=== PATIENT | female | born 2000 | race Caucasian/White ===

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

== ENCOUNTER 2019-02-14 17:03 | Emergency (ER) | payer MEDICAID ==
[2019-02-14 17:08] VITALS: BP 129/70
[2019-02-14] MEDS ORDERED: CYCLOBENZAPRINE 10 MG TABLET PO STA (17:22)
[2019-02-14] MEDS ORDERED: MELOXICAM 7.5 MG TABLET PO STA (17:22)
--- NOTE | 2019-02-14 17:25 | ED Physician Documentation ---
History of Present Illness - Stated complaint Stated Complaint: BACK PX/NAUSEA - Chief complaint Chief Complaint: Back Pain - History obtained from History obtained from: Patient, Friend - History of Present Illness Timing: How many weeks ago (1) Pain level max: 6 Pain level now: 5 - Additonal information Additional information: 18-year-old female presents to the emergency department with right shoulder and upper back pain for the past week. 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 Took Motrin this morning without relief. Worse with movement and better with rest. No fall. No trauma. No fevers. No recent illness. Review of Systems Constitutional: denies: Fever, Chills Cardiac: denies: Chest pain / pressure Respiratory: denies: Cough GI: denies: Vomiting Skin: denies: Rash Musculoskeletal: denies: Neck pain Neurologic: denies: Focal weakness, Numbness, Head injury PD PAST MEDICAL HISTORY - Past Medical History Cardiovascular: None Respiratory: Asthma Endocrine/Autoimmune: None Psych: None Musculoskeletal: None - Past Surgical History Past Surgical History: No - Present Medications Home Medications: Ambulatory Orders Medication Instructions Recorded Confirmed Fluticasone [Flonase] 1 spray [place] DAILY 05/26/14 08/20/16 Albuterol 2.5 mg INH Q4H PRN #30 neb 10/28/15 08/20/16 Albuterol Sulfate [Ventolin Hfa] 2 puffs IH Q6H PRN #1 hfa.aer.ad 10/28/15 08/20/16 Cyclobenzaprine [Flexeril] 10 mg PO TID PRN #20 tablet 02/14/19 Meloxicam [Mobic] 15 mg PO DAILY PRN #20 tablet 02/14/19 - Allergies Allergies/Adverse Reactions: Allergies Allergy/AdvReac Type Severity Reaction Status Date / Time No Known Drug Allergies Allergy Verified 02/14/19 17:08 - Social History Does the pt smoke?: No Smoking Status: Never smoker Does the pt drink ETOH?: No Does the pt have substance abuse?: No - Immunizations Immunizations are current?: Yes PD ED PE NORMAL - Vitals Vital signs reviewed: Yes - General General: Alert and oriented X 3, No acute distress - HEENT HEENT: Moist mucous membranes - Neck Neck: Supple, no meningeal sign, No bony TTP - Cardiac Cardiac: RRR, No murmur - Respiratory Respiratory: No respiratory distress, Clear bilaterally - Abdomen Abdomen: Soft, Non tender, Non distended - Back Back: No spinal TTP, Other (Tender palpation over the right rhomboid muscle. Increased pain with movement of the scapula. 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 Will based on pain medication and muscle relaxants for home. We will follow-up with her doctor. Will utilize sling for comfort. Patient counseled regarding signs and symptoms for which I believe and urgent re-evaluation would be necessary. Patient with good understanding of and agreement to plan and is comfortable going home at this time This document was made in part using voice recognition software. While efforts are made to proofread this document, sound alike and grammatical errors may occur. Departure - Departure Disposition: 01 Home, Self Care Clinical Impression: Rhomboid muscle strain Qualifiers: Encounter type: initial encounter Qualified Code(s): S29.012A - Strain of muscle and tendon of back wall of thorax, initial encounter Condition: Good Instructions: ED Strain Muscle Ext Follow-Up: Your,doctor in 1 week [Other] Prescriptions: Cyclobenzaprine [Flexeril] 10 mg PO TID PRN #20 tablet PRN Reason: Spasms Meloxicam [Mobic] 15 mg PO DAILY PRN #20 tablet PRN Reason: pain Comments: Return if you worsen. Wear the sling for comfort but not more than 2 to [address] heavy machinery while taking the Flexeril. Discharge Date/Time: 02/14/19 17:35
== END 2019-02-14 17:35 | disposition home or self-care (01) ==
LOC: ED 17:03
DX: S29.012A Strain of muscle and tendon of back wall of thorax, initial encounter (principal); X58.XXXA Exposure to other specified factors, initial encounter
CPT/HCPCS: 99283; A9270

== ENCOUNTER 2019-02-18 14:05 | Emergency (ER) | payer OTHER, MEDICAID ==
[2019-02-18 14:16] VITALS: BP 119/66
[2019-02-18] MEDS ORDERED: PROPARACAINE 0.5% OPHTH DROPS 15 ML EACHEYE STA (14:46)
--- NOTE | 2019-02-18 15:14 | ED Physician Documentation ---
PD HPI OPHTHO - Stated complaint Stated Complaint: CHEMICAL IN EYES - Chief complaint Chief Complaint: Heent - History obtained from History obtained from: Patient - History of Present Illness Timing - onset: Today Timing - duration: Hours (1) Timing - details: Abrupt onset Pain level max: 3 Pain level now: 0 Location: Right Quality / character: Burning Associated symptoms: Redness, Tearing. No: Discharge, Matting, FB sensation, Photophobia, Decreased vision, Loss of vision Contributing factors: Other (Exposed to cleaning solution today at work. 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 : None HEENT: None Psych: None Musculoskeletal: None Derm: None - Past Surgical History Past Surgical History: No General: Appendectomy - Present Medications Home Medications: Ambulatory Orders Medication Instructions Recorded Confirmed Fluticasone [Flonase] 1 spray [place] DAILY 05/26/14 08/20/16 Albuterol 2.5 mg INH Q4H PRN #30 neb 10/28/15 08/20/16 Albuterol Sulfate [Ventolin Hfa] 2 puffs IH Q6H PRN #1 hfa.aer.ad 10/28/15 08/20/16 Cyclobenzaprine [Flexeril] 10 mg PO TID PRN #20 tablet 02/14/19 Meloxicam [Mobic] 15 mg PO DAILY PRN #20 tablet 02/14/19 - Allergies Allergies/Adverse Reactions: Allergies Allergy/AdvReac Type Severity Reaction Status Date / Time No Known Drug Allergies Allergy Verified 02/18/19 14:15 - Social History Does the pt smoke?: No Smoking Status: Never smoker Does the pt drink ETOH?: No Does the pt have substance abuse?: No - Immunizations Immunizations are current?: Yes - POLST Patient has POLST: No PD ED PE NORMAL - Vitals Vital signs reviewed: Yes - General General: Alert and oriented X 3, No acute distress - HEENT HEENT: Other (Normal examination of bilateral eyes. No fluorescein uptake. Normal pH.) - Neck Neck: Supple, no meningeal sign - Derm Derm: Warm and dry - Neuro Neuro: Alert and oriented X 3 Results - Vitals Vitals: Vital Signs - 24 hr 02/18/19 14:12 Temperature 36.7 C Heart Rate 82 Respiratory 16 Rate Blood Pressure 119/66 O2 Saturation 100 Oxygen O2 Source Room air PD MEDICAL DECISION MAKING - ED course Complexity details: considered differential, d/w patient ED course: Patient with chemical exposure to the right eye. Normal pH. No fluorescein uptake. We will continue supportive care. Patient asymptomatic. Patient counseled regarding signs and symptoms for which I believe and urgent re- evaluation would be necessary. Patient with good understanding of and agreement to plan and is comfortable going home at this time This document was made in part using voice recognition software. While efforts are made to proofread this document, sound alike and grammatical errors may occur. Departure - Departure Disposition: 01 Home, Self Care Clinical Impression: Chemical exposure of eye Condition: Good Instructions: ED Chemical Conjunctivitis Follow-Up: your,doctor in 1 week [Other] Comments: Return if you worsen. This should resolve without any issues.
== END 2019-02-18 15:18 | disposition home or self-care (01) ==
LOC: ED 14:05
DX: Z77.098 Contact with and (suspected) exposure to other hazardous, chiefly nonmedicinal, chemicals (principal); H57.11 Ocular pain, right eye
CPT/HCPCS: 1040M; 99283; J3490

== ENCOUNTER 2019-12-10 11:42 | Emergency (ER) | payer MEDICAID ==
--- NOTE | 2019-12-10 13:00 | ED Physician Documentation ---
PD HPI MHE - Stated complaint Stated Complaint: ANXIETY - Chief complaint Chief Complaint: MHE - History obtained from History obtained from: Patient - History of Present Illness Primary symptom: Suicidal ideation, Anxiety Pain level max: 0 Pain level now: 0 - Additional information Additional information: 19-year-old female presents to the emergency department with increasing anxiety and depression over the past week or so. She states this was not triggered by any specific event. She states that she thinks about suicide but is not actively suicidal. She is on fluoxetine at home. She does not know who prescribes her medications. Has never attempted suicide. Has not been hospitalized for this. Nothing makes it better or worse. She is not , breast-feeding or trying to become . 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 : None HEENT: None Psych: None Musculoskeletal: None Derm: None - Past Surgical History Past Surgical History: No General: Appendectomy - Present Medications Home Medications: Ambulatory Orders Medication Instructions Recorded Confirmed Fluticasone [Flonase] 1 spray [place] DAILY 05/26/14 08/20/16 Albuterol 2.5 mg INH Q4H PRN #30 neb 10/28/15 08/20/16 Albuterol Sulfate [Ventolin Hfa] 2 puffs IH Q6H PRN #1 hfa.aer.ad 10/28/15 08/20/16 Cyclobenzaprine [Flexeril] 10 mg PO TID PRN #20 tablet 02/14/19 Meloxicam [Mobic] 15 mg PO DAILY PRN #20 tablet 02/14/19 Alprazolam [Xanax] 0.5 mg PO BID PRN #5 tablet 12/10/19 - Allergies Allergies/Adverse Reactions: Allergies Allergy/AdvReac Type Severity Reaction Status Date / Time No Known Drug Allergies Allergy Verified 12/10/19 12:28 - Social History Does the pt smoke?: No Smoking Status: Never smoker Does the pt drink ETOH?: No Does the pt have substance abuse?: No - Immunizations Immunizations are current?: Yes - POLST Patient has POLST: No PD ED PE NORMAL - Vitals Vital signs reviewed: Yes - General General: Alert and oriented X 3, No acute distress - HEENT HEENT: PERRL, Moist mucous membranes - Neck Neck: Supple, no meningeal sign - Cardiac Cardiac: RRR - Respiratory Respiratory: No respiratory distress, Clear bilaterally - Abdomen Abdomen: Soft, Non tender, Non distended - Derm Derm: Warm and dry, No rash - Extremities Extremities: No edema - Neuro Neuro: Alert and oriented X 3 - Psych Psych: Normal mood, Normal affect Results - Vitals Vitals: Vital Signs - 24 hr 12/10/19 12/10/19 12:13 14:35 Temperature 37.8 C H 36.8 C Heart Rate 98 84 Respiratory 28 H 15 Rate Blood Pressure 136/88 H 124/81 H O2 Saturation 99 98 Oxygen O2 Source Room air - Labs Labs: Laboratory Tests 12/10/19 12/10/19 12/10/19 12:59 12:59 12:59 WBC 5.7 RBC 4.26 Hgb 11.6 L Hct 36.1 L MCV 84.7 MCH 27.2 MCHC 32.1 RDW 14.4 Plt Count 316 MPV 10.1 Neut # (Auto) 3.2 Lymph # (Auto) 1.8 [place] # (Auto) 0.5 Eos # (Auto) 0.1 Baso # (Auto) 0.0 Absolute Nucleated RBC 0.00 Nucleated RBC % 0.0 Sodium 138 Potassium 3.8 Chloride 104 Carbon Dioxide 24 Anion Gap 10.0 BUN 6 Creatinine 0.7 Estimated GFR (MDRD) 107 Glucose 89 Calcium 9.4 Total Bilirubin 0.4 AST 19 ALT 14 Alkaline Phosphatase 50 Total Protein 7.7 Albumin 3.9 Globulin 3.8 Albumin/Globulin Ratio 1.0 Lipase 31 TSH 1.48 Urine Color Urine Clarity Urine pH Ur Specific [place] Urine Protein Urine Glucose (UA) Urine Ketones Urine Occult Blood Urine Nitrite Urine Bilirubin Urine Urobilinogen Ur Leukocyte Esterase Ur Microscopic Review Urine Culture Comments Urine HCG, Qual Salicylates < 6.0 Urine Opiates Screen Ur Oxycodone Screen Urine Methadone Screen Ur Propoxyphene Screen Acetaminophen < 10 L Ur Barbiturates Screen Ur Tricyclics Screen Ur Phencyclidine Scrn Ur Amphetamine Screen U Methamphetamines Scrn U Benzodiazepines Scrn Urine Cocaine Screen U Cannabinoids Screen Ethyl Alcohol < 5.0 04/21/20 04/21/20 13:23 13:23 WBC RBC Hgb Hct MCV MCH MCHC RDW Plt Count MPV Neut # (Auto) Lymph # (Auto) [place] # (Auto) Eos # (Auto) Baso # (Auto) Absolute Nucleated RBC Nucleated RBC % Sodium Potassium Chloride Carbon Dioxide Anion Gap BUN Creatinine Estimated GFR (MDRD) Glucose Calcium Total Bilirubin AST ALT Alkaline Phosphatase Total Protein Albumin Globulin Albumin/Globulin Ratio Lipase TSH Urine Color YELLOW Urine Clarity CLEAR Urine pH 7.5 Ur Specific [place] 1.015 Urine Protein NEGATIVE Urine Glucose (UA) NEGATIVE Urine Ketones NEGATIVE Urine Occult Blood NEGATIVE Urine Nitrite NEGATIVE Urine Bilirubin NEGATIVE Urine Urobilinogen 0.2 (NORMAL) Ur Leukocyte Esterase NEGATIVE Ur Microscopic Review NOT INDICATED Urine Culture Comments NOT INDICATED Urine HCG, Qual NEGATIVE Salicylates Urine Opiates Screen NEGATIVE Ur Oxycodone Screen NEGATIVE Urine Methadone Screen NEGATIVE Ur Propoxyphene Screen NEGATIVE Acetaminophen Ur Barbiturates Screen NEGATIVE Ur Tricyclics Screen NEGATIVE Ur Phencyclidine Scrn NEGATIVE Ur Amphetamine Screen NEGATIVE U Methamphetamines Scrn NEGATIVE U Benzodiazepines Scrn NEGATIVE Urine Cocaine Screen NEGATIVE U Cannabinoids Screen POSITIVE H Ethyl Alcohol PD MEDICAL DECISION MAKING - ED course Complexity details: reviewed results, re-evaluated patient, considered differential, d/w patient ED course: Patient with anxiety and depression. Not suicidal or homicidal at this time. Social work was consulted and the patient contracts for safety. Given resources for follow-up. Patient counseled regarding signs and symptoms for which I believe and urgent re-evaluation would be necessary. Patient with good understanding of and agreement to plan and is comfortable going home at this time This document was made in part using voice recognition software. While efforts are made to proofread this document, sound alike and grammatical errors may occur. Patient does not wish to seek voluntary placement at this time Departure - Departure Disposition: 01 Home, Self Care Clinical Impression: Anxiety Depression Qualifiers: Depression Type: unspecified Qualified Code(s): F32.9 - Major depressive disorder, single episode, unspecified Condition: Good Instructions: ED Depression, ED Panic Attack Follow-Up: [facility] [Provider Group] - Within 1 week Prescriptions: Alprazolam [Xanax] 0.5 mg PO BID PRN #5 tablet PRN Reason: Anxiety Comments: Follow-up with your doctor for further care. Return if you worsen. Utilize the resources given to you today by social work. Crisis Line and is available to talk to someone [email or web address] is also available to chat with someone online if you prefer. There are also many resources on this website and apps for your phone to help with your mental health You can also text the word START to [phone] to chat with someome via text. Discharge Date/Time: 12/10/19 14:36
[2019-12-10 13:16] LABS: BASOPHILS % (AUTO) 0.4 %; EOSINOPHILS # (AUTO) 0.1 10^3/uL (0.0-0.7); EOSINOPHILS % (AUTO) 1.8 %; HGB - HEMOGLOBIN 11.6 g/dL (12.0-16.0); LYMPHOCYTES # (AUTO) 1.8 10^3/uL (1.5-3.5); LYMPHOCYTES % (AUTO) 31.8 %; MEAN CORPUSCULAR HEMOGLOBIN 27.2 pg (27.0-31.0); MEAN CORPUSCULAR HGB CONC 32.1 g/dL (32.0-36.0); MEAN CORPUSCULAR VOLUME 84.7 fL (81.0-99.0); MEAN PLATELET VOLUME 10.1 fL (7.9-10.8); MONOCYTES # (AUTO) 0.5 10^3/uL (0.0-1.0); MONOCYTES % (AUTO) 9.1 %; NEUTROPHILS # (AUTO) 3.2 10^3/uL (1.5-6.6); NEUTROPHILS % (AUTO) 56.7 %; PLT - PLATELET COUNT 316 10^3/uL (130-450); RED BLOOD COUNT 4.26 10^6/uL (4.20-5.40); RED CELL DISTRIBUTION WIDTH 14.4 % (12.0-15.0); WHITE BLOOD COUNT 5.7 x10^3/uL (4.8-10.8)
[2019-12-10 13:28] LABS: MUDS CUTOFF CONCENTRATIONS CUTOFF CONC BELOW:
[2019-12-10 13:29] LABS: BILIRUBIN,URINE NEGATIVE (NEGATIVE); GLUCOSE, URINE (UA) NEGATIVE (NEGATIVE); KETONES,URINE (UA) NEGATIVE (NEGATIVE); LEUKOCYTE ESTERASE, URINE NEGATIVE (NEGATIVE); NITRITE,URINE NEGATIVE (NEGATIVE); OCCULT BLOOD,URINE NEGATIVE (NEGATIVE); PH,URINE 7.5 PH (5.0-7.5); PROTEIN,URINE NEGATIVE (NEGATIVE); UROBILINOGEN,URINE 0.2 (NORMAL) E.U./dL (NORMAL)
[2019-12-10 13:31] LABS: CLARITY,URINE CLEAR (CLEAR); HCG UR QUAL NEGATIVE
[2019-12-10 13:34] LABS: ACETAMINOPHEN < 10 ug/mL (10-30); ALBUMIN 3.9 g/dL (3.2-5.5); ALKALINE PHOSPHATASE 50 IU/L (42-121); ALT ALANINE AMINOTRANSFERASE 14 IU/L (10-60); AST ASPARTATE AMINOTRANSFERASE 19 IU/L (10-42); BILIRUBIN,TOTAL 0.4 mg/dL (0.2-1.0); BUN - BLOOD UREA NITROGEN 6 mg/dL (6-20); CALCIUM 9.4 mg/dL (8.5-10.3); CARBON DIOXIDE - CO2 24 mmol/L (21-32); CHLORIDE 104 mmol/L (101-111); CREATININE 0.7 mg/dL (0.4-1.0); GLUCOSE 89 mg/dL (70-100); LIPASE 31 U/L (22-51); SALICYLATE < 6.0 mg/dL; SODIUM 138 mmol/L (135-145); TOTAL PROTEIN 7.7 g/dL (6.7-8.2)
[2019-12-10 13:38] LABS: AMPHETAMINE SCREEN,URINE NEGATIVE (NEGATIVE); BENZODIAZEPINES SCREEN, URINE NEGATIVE (NEGATIVE); COCAINE SCREEN URINE NEGATIVE (NEGATIVE); METHADONE SCREEN, URINE NEGATIVE (NEGATIVE); METHAMPHETAMINES SCREEN, URINE NEGATIVE (NEGATIVE); OPIATE SCREEN, URINE NEGATIVE (NEGATIVE); OXYCODONE SCREEN, URINE NEGATIVE (NEGATIVE); PROPOXYPHENE SCREEN, URINE NEGATIVE (NEGATIVE); TRICYCLIC ANTIDEPRESSANT,URINE NEGATIVE (NEGATIVE)
[2019-12-10 14:36] VITALS: BP 124/81
== END 2019-12-10 14:36 | disposition home or self-care (01) ==
LOC: ED 11:42
DX: F41.9 Anxiety disorder, unspecified (principal); F32.9 Major depressive disorder, single episode, unspecified
CPT/HCPCS: 36415; 80053; 80306; 80307; 80320; 80329; 81001; 81003; 81025; 83690; 84443; 85025; 87086; 99283; 99284

== ENCOUNTER 2020-03-05 07:00 | Outpatient (CLI) | payer MEDICAID | END 2020-03-05 23:59 | disposition home or self-care (01) | LOC: LAB.R 07:00 | PROVIDERS: ATTEND Physician Assistant Medical | DX: J02.9 Acute pharyngitis, unspecified (principal) | CPT/HCPCS: 87070 ==

== ENCOUNTER 2020-04-21 08:00 | Outpatient (CLI) | payer MEDICAID ==
[2020-04-21 18:35] LABS: BASOPHILS % (AUTO) 0.4 %; EOSINOPHILS # (AUTO) 0.1 10^3/uL (0.0-0.7); EOSINOPHILS % (AUTO) 1.7 %; HGB - HEMOGLOBIN 11.8 g/dL (12.0-16.0); LYMPHOCYTES # (AUTO) 2.1 10^3/uL (1.5-3.5); LYMPHOCYTES % (AUTO) 29.8 %; MEAN CORPUSCULAR HGB CONC 31.2 g/dL (32.0-36.0); MEAN CORPUSCULAR VOLUME 89.8 fL (81.0-99.0); MEAN PLATELET VOLUME 11.2 fL (7.9-10.8); MONOCYTES # (AUTO) 0.6 10^3/uL (0.0-1.0); NEUTROPHILS # (AUTO) 4.3 10^3/uL (1.5-6.6); NEUTROPHILS % (AUTO) 59.8 %; PLT - PLATELET COUNT 336 10^3/uL (130-450); RED BLOOD COUNT 4.21 10^6/uL (4.20-5.40); WHITE BLOOD COUNT 7.1 x10^3/uL (4.8-10.8)
[2020-04-21 18:49] LABS: ALBUMIN 3.8 g/dL (3.2-5.5); BILIRUBIN,TOTAL 0.5 mg/dL (0.2-1.0); CALCIUM 9.3 mg/dL (8.5-10.3); CREATININE 0.7 mg/dL (0.4-1.0); TOTAL PROTEIN 7.6 g/dL (6.7-8.2)
== END 2020-04-21 23:59 | disposition home or self-care (01) ==
LOC: LAB.WCP 08:00
PROVIDERS: ATTEND Nurse Practitioner
DX: Z79.899 Other long term (current) drug therapy (principal)
CPT/HCPCS: 36415; 80053; 85025

== ENCOUNTER 2020-11-11 13:46 | Emergency (ER) | payer MEDICAID ==
[2020-11-11 14:39] LABS: BASOPHILS % (AUTO) 0.5 %; EOSINOPHILS # (AUTO) 0.4 10^3/uL (0.0-0.7); EOSINOPHILS % (AUTO) 4.2 %; HCT - HEMATOCRIT 38.1 % (37.0-47.0); HGB - HEMOGLOBIN 12.8 g/dL (12.0-16.0); LYMPHOCYTES # (AUTO) 2.7 10^3/uL (1.5-3.5); LYMPHOCYTES % (AUTO) 31.1 %; MEAN CORPUSCULAR HEMOGLOBIN 29.6 pg (27.0-31.0); MEAN CORPUSCULAR HGB CONC 33.6 g/dL (32.0-36.0); MEAN CORPUSCULAR VOLUME 88.2 fL (81.0-99.0); MEAN PLATELET VOLUME 10.1 fL (7.9-10.8); MONOCYTES # (AUTO) 0.6 10^3/uL (0.0-1.0); MONOCYTES % (AUTO) 6.8 %; NEUTROPHILS # (AUTO) 4.9 10^3/uL (1.5-6.6); PLT - PLATELET COUNT 326 10^3/uL (130-450); RED BLOOD COUNT 4.32 10^6/uL (4.20-5.40); RED CELL DISTRIBUTION WIDTH 12.7 % (12.0-15.0); WHITE BLOOD COUNT 8.5 x10^3/uL (4.8-10.8)
[2020-11-11 14:47] LABS: MUDS CUTOFF CONCENTRATIONS CUTOFF CONC BELOW:
[2020-11-11 14:49] LABS: BILIRUBIN,URINE NEGATIVE (NEGATIVE); GLUCOSE, URINE (UA) NEGATIVE (NEGATIVE); KETONES,URINE (UA) NEGATIVE (NEGATIVE); LEUKOCYTE ESTERASE, URINE NEGATIVE (NEGATIVE); NITRITE,URINE NEGATIVE (NEGATIVE); OCCULT BLOOD,URINE NEGATIVE (NEGATIVE); PROTEIN,URINE NEGATIVE (NEGATIVE); UROBILINOGEN,URINE 0.2 (NORMAL) E.U./dL (NORMAL)
[2020-11-11 14:51] LABS: CLARITY,URINE CLEAR (CLEAR)
[2020-11-11 14:53] LABS: HCG UR QUAL NEGATIVE
--- NOTE | 2020-11-11 14:53 | ED Physician Documentation ---
History of Present Illness - Stated complaint Stated Complaint: SI - Chief complaint Chief Complaint: MHE - Additonal information Additional information: 20-year-old female presents the emergency department for evaluation of suicidal ideation/intent. She does have a longstanding history of depression and this morning had the thought of taking her bottle of Zoloft though she did not. She called her at work who took her to the emergency department. She has been seen here in the past for similar. She denies voices or delusions. She does not want to but just feels profoundly depressed. She is not very forthcoming with history or information and has very poor eye contact. When I ask if she would like to be hospitalized for treatment of her depression she nods yes. She does endorse daily cannabis use but no alcohol or other illicit drugs. Denies any pertinent past medical history. Review of Systems Constitutional: reports: Reviewed and negative Eyes: reports: Reviewed and negative Nose: reports: Reviewed and negative Throat: reports: Reviewed and negative Cardiac: reports: Reviewed and negative Respiratory: reports: Reviewed and negative GI: reports: Reviewed and negative : reports: Reviewed and negative Skin: reports: Reviewed and negative Neurologic: reports: Reviewed and negative Psychiatric: reports: Depressed, Suicidal. 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 HEENT: None Psych: None Musculoskeletal: None Derm: None - Past Surgical History Past Surgical History: No General: Appendectomy - Present Medications Home Medications: Ambulatory Orders Medication Instructions Recorded Confirmed Sertraline HCl [Zoloft] 100 mg PO DAILY 11/11/20 11/11/20 - Allergies Allergies/Adverse Reactions: Allergies Allergy/AdvReac Type Severity Reaction Status Date / Time No Known Drug Allergies Allergy Verified 11/11/20 13:56 - Social History Does the pt smoke?: No Smoking Status: Never smoker Does the pt drink ETOH?: No Does the pt have substance abuse?: No - Immunizations Immunizations are current?: Yes - POLST Patient has POLST: No PD ED PE EXPANDED - General General: Alert, No acute distress, Well developed/nourished - Cardiac Cardiac: Regular Rate, Regular Rhythm, Radial strong equal, Pedal strong equal, Cap refill < 2 sec. No: Murmur Present - Respiratory Respiratory: Clear to ausultation ender. No: Distress, Labored - Abdomen Abdomen: Normal Bowel sounds. No: Tender to palpation - Derm Derm: Normal color, Warm and dry. No: Rash - Extremities Extremities: Normal. No: Deformity, Tenderness - Neuro Neuro: Alert and Oriented X 3, CNII-XII intact - GCS Eye Opening: Spontaneous Motor: Obeys Commands Verbal: Oriented Total: 15 - Psych Psych: Suicidal, Tearful, Withdrawn, Poor eye contact Results - Vitals Vitals: Vital Signs - 24 hr 11/11/20 13:57 Temperature 37.0 C Heart Rate 90 Respiratory 19 Rate Blood Pressure 120/78 O2 Saturation 100 Oxygen O2 Source Room air - Labs Labs: Laboratory Tests 11/11/20 11/11/20 11/11/20 14:30 14:30 14:30 WBC 8.5 RBC 4.32 Hgb 12.8 Hct 38.1 MCV 88.2 MCH 29.6 MCHC 33.6 RDW 12.7 Plt Count 326 MPV 10.1 Neut # (Auto) 4.9 Lymph # (Auto) 2.7 [place] # (Auto) 0.6 Eos # (Auto) 0.4 Baso # (Auto) 0.0 Absolute Nucleated RBC 0.00 Nucleated RBC % 0.0 Sodium 137 Potassium 3.7 Chloride 99 L Carbon Dioxide 21 Anion Gap 17.0 H BUN 10 Creatinine 0.7 Estimated GFR (MDRD) 106 Glucose 91 Calcium 10.7 H Total Bilirubin 0.3 AST 22 ALT 19 Alkaline Phosphatase 51 Total Protein 7.7 Albumin 4.3 Globulin 3.4 Albumin/Globulin Ratio 1.3 Lipase 37 TSH 1.49 Urine Color Urine Clarity Urine pH Ur Specific [place] Urine Protein Urine Glucose (UA) Urine Ketones Urine Occult Blood Urine Nitrite Urine Bilirubin Urine Urobilinogen Ur Leukocyte Esterase Ur Microscopic Review Urine Culture Comments Urine HCG, Qual Nasal Adenovirus (PCR) Nasal B. parapertussis DNA (PCR) Nasal Coronavir 229E PCR Nasal Coronavir HKU1 PCR Nasal Coronavir NL63 PCR Nasal Coronavir OC43 PCR Nasal Enterovir/Rhinovir PCR Nasal Influenza B PCR Nasal Influenza A PCR Nasal Parainfluen 1 PCR Nasal Parainfluen 2 PCR Nasal Parainfluen 3 PCR Nasal Parainfluen 4 PCR Nasal RSV (PCR) Nasal B.pertussis DNA PCR Nasal C.pneumoniae (PCR) [place] Human Metapneumo PCR Nasal M.pneumoniae (PCR) Nasal SARS-CoV-2 (PCR) Salicylates < 6.0 Urine Opiates Screen Ur Oxycodone Screen Urine Methadone Screen Ur Propoxyphene Screen Acetaminophen < 10 L Ur Barbiturates Screen Ur Tricyclics Screen Ur Phencyclidine Scrn Ur Amphetamine Screen U Methamphetamines Scrn U Benzodiazepines Scrn Urine Cocaine Screen U Cannabinoids Screen Ethyl Alcohol < 5.0 11/11/20 11/11/20 14:44 18:18 WBC RBC Hgb Hct MCV MCH MCHC RDW Plt Count MPV Neut # (Auto) Lymph # (Auto) [place] # (Auto) Eos # (Auto) Baso # (Auto) Absolute Nucleated RBC Nucleated RBC % Sodium Potassium Chloride Carbon Dioxide Anion Gap BUN Creatinine Estimated GFR (MDRD) Glucose Calcium Total Bilirubin AST ALT Alkaline Phosphatase Total Protein Albumin Globulin Albumin/Globulin Ratio Lipase TSH Urine Color YELLOW Urine Clarity CLEAR Urine pH 7.0 Ur Specific [place] 1.015 Urine Protein NEGATIVE Urine Glucose (UA) NEGATIVE Urine Ketones NEGATIVE Urine Occult Blood NEGATIVE Urine Nitrite NEGATIVE Urine Bilirubin NEGATIVE Urine Urobilinogen 0.2 (NORMAL) Ur Leukocyte Esterase NEGATIVE Ur Microscopic Review NOT INDICATED Urine Culture Comments NOT INDICATED Urine HCG, Qual NEGATIVE Nasal Adenovirus (PCR) NOT DETECTED Nasal B. parapertussis DNA (PCR) NOT DETECTED Nasal Coronavir 229E PCR NOT DETECTED Nasal Coronavir HKU1 PCR NOT DETECTED Nasal Coronavir NL63 PCR NOT DETECTED Nasal Coronavir OC43 PCR NOT DETECTED Nasal Enterovir/Rhinovir PCR NOT DETECTED Nasal Influenza B PCR NOT DETECTED Nasal Influenza A PCR NOT DETECTED Nasal Parainfluen 1 PCR NOT DETECTED Nasal Parainfluen 2 PCR NOT DETECTED Nasal Parainfluen 3 PCR NOT DETECTED Nasal Parainfluen 4 PCR NOT DETECTED Nasal RSV (PCR) NOT DETECTED Nasal B.pertussis DNA PCR NOT DETECTED Nasal C.pneumoniae (PCR) NOT DETECTED [place] Human Metapneumo PCR NOT DETECTED Nasal M.pneumoniae (PCR) NOT DETECTED Nasal SARS-CoV-2 (PCR) NOT DETECTED Salicylates Urine Opiates Screen NEGATIVE Ur Oxycodone Screen NEGATIVE Urine Methadone Screen NEGATIVE Ur Propoxyphene Screen NEGATIVE Acetaminophen Ur Barbiturates Screen NEGATIVE Ur Tricyclics Screen NEGATIVE Ur Phencyclidine Scrn NEGATIVE Ur Amphetamine Screen NEGATIVE U Methamphetamines Scrn NEGATIVE U Benzodiazepines Scrn NEGATIVE Urine Cocaine Screen NEGATIVE U Cannabinoids Screen POSITIVE H Ethyl Alcohol PD MEDICAL DECISION MAKING - ED course Complexity details: reviewed results, re-evaluated patient, considered differential, d/w patient ED course: 20-year-old female presents emergency department for evaluation of suicidal thoughts. She was going to take her bottle of Zoloft but called her instead. She does have a longstanding history of depression. Though she is not very forthcoming with her history of depression or any preceding events she is requesting hospitalization for stabilization. Screening labs are unremarkable. Mild screen positive for cannabis only for which patient admitted to daily use. She has been seen by social work and we will search for voluntary placement. At times patient has been very tearful and crying. I did give her 2 mg of Ativan which did work for a little bit before she began crying uncontrollably again. Her symptoms were managed somewhat what she was allowed to speak on the phone with her as well as her mom and sister. She remained stable here in the emergency department we are seeking voluntary placement for stabilization of depression and suicidal thoughts 2104: Patient has been accepted by [facility]. She will be transported there via BLS. Appropriate [employer] paperwork has been filled out. Patient remains voluntary and is aware of the plans to transfer via BLS Departure - Departure Disposition: 65 Psych Hosp/Unit DC/Xfer Clinical Impression: Suicidal ideations Depression Qualifiers: Depression Type: major depressive disorder Major depression recurrence: unspecified whether recurrent Active/Remission status: currently active Major depression episode severity: moderate Qualified Code(s): F32.1 - Major depressive disorder, single episode, moderate
[2020-11-11 14:58] LABS: ACETAMINOPHEN < 10 ug/mL (10-30); ALBUMIN 4.3 g/dL (3.2-5.5); ALBUMIN/GLOBULIN RATIO 1.3 (1.0-2.2); ALKALINE PHOSPHATASE 51 IU/L (42-121); ALT ALANINE AMINOTRANSFERASE 19 IU/L (10-60); AST ASPARTATE AMINOTRANSFERASE 22 IU/L (10-42); BILIRUBIN,TOTAL 0.3 mg/dL (0.2-1.0); BUN - BLOOD UREA NITROGEN 10 mg/dL (6-20); CALCIUM 10.7 mg/dL (8.5-10.3); CARBON DIOXIDE - CO2 21 mmol/L (21-32); CHLORIDE 99 mmol/L (101-111); CREATININE 0.7 mg/dL (0.4-1.0); ETOH - ETHANOL < 5.0 mg/dL; GFR - MDRD 106 (>89); GLUCOSE 91 mg/dL (70-100); LIPASE 37 U/L (22-51); POTASSIUM 3.7 mmol/L (3.5-5.0); SALICYLATE < 6.0 mg/dL; SODIUM 137 mmol/L (135-145); TOTAL PROTEIN 7.7 g/dL (6.7-8.2)
[2020-11-11 15:04] LABS: AMPHETAMINE SCREEN,URINE NEGATIVE (NEGATIVE); BARBITURATE SCREEN,UR NEGATIVE (NEGATIVE); BENZODIAZEPINES SCREEN, URINE NEGATIVE (NEGATIVE); COCAINE SCREEN URINE NEGATIVE (NEGATIVE); METHADONE SCREEN, URINE NEGATIVE (NEGATIVE); METHAMPHETAMINES SCREEN, URINE NEGATIVE (NEGATIVE); OPIATE SCREEN, URINE NEGATIVE (NEGATIVE); OXYCODONE SCREEN, URINE NEGATIVE (NEGATIVE); PROPOXYPHENE SCREEN, URINE NEGATIVE (NEGATIVE); THC CANNABINOID SCREEN, URINE POSITIVE (NEGATIVE); TRICYCLIC ANTIDEPRESSANT,URINE NEGATIVE (NEGATIVE)
[2020-11-11] MEDS ORDERED: LORazepam 1 MG TABLET PO STA (15:11)
[2020-11-11] MEDS ORDERED: IBUPROFEN 600 MG TABLET PO STA (18:21)
[2020-11-11 19:20] LABS: B. PARAPERTUSSIS- RESP PCR PAN NOT DETECTED; B. PERTUSSIS- RESP PCR PANEL NOT DETECTED; C. PNEUMONIAE- RESP PCR PANEL NOT DETECTED; CORONAVIRUS 229E-RESP PCR NOT DETECTED; CORONAVIRUS HKU1-RESP PCR NOT DETECTED; CORONAVIRUS NL63-RESP PCR NOT DETECTED; CORONAVIRUS OC43-RESP PCR NOT DETECTED; HUMAN METAPNEUMOVIRUS NOT DETECTED; INFLUENZA A- RESP PCR PANEL NOT DETECTED; INFLUENZA B - RESP PCR PANEL NOT DETECTED; M. PNEUMONIAE- RESP PCR PANEL NOT DETECTED; PARAINFLUENZA VIRUS 1 NOT DETECTED; PARAINFLUENZA VIRUS 2 NOT DETECTED; PARAINFLUENZA VIRUS 3 NOT DETECTED; PARAINFLUENZA VIRUS 4 NOT DETECTED; RHINOVIRUS/ENTEROVIRUS NOT DETECTED; RSV- RESP PCR PANEL NOT DETECTED; SARS-CoV-2 -RESP PCR PANEL NOT DETECTED
[2020-11-11 23:14] VITALS: BP 122/81
== END 2020-11-11 23:05 ==
LOC: ED 13:46
DX: R45.851 Suicidal ideations (principal); F32.1 Major depressive disorder, single episode, moderate; Z20.822 Contact with and (suspected) exposure to COVID-19
CPT/HCPCS: 0202U; 36415; 80053; 80306; 80307; 80320; 80329; 81003; 81025; 83690; 84443; 85025; 99283; 99285; A9270; J8499; 81001; 87086

== ENCOUNTER 2021-07-27 12:04 | Emergency (ER) | payer MEDICAID ==
[2021-07-27] MEDS ORDERED: IPRATROPIUM/ALBUTEROL 3 ML NEB INH STA (13:36)
[2021-07-27] MEDS ORDERED: predniSONE 20 MG TABLET PO STA (13:36)
--- NOTE | 2021-07-27 13:48 | ED Physician Documentation ---
History of Present Illness - Stated complaint Stated Complaint: SOA, BODY ACHES - Chief complaint Chief Complaint: Resp - History obtained from History obtained from: Patient - History of Present Illness Timing: Today Pain level max: 0 Pain level now: 0 - Additonal information Additional information: 21-year-old female has a longstanding history of asthma. She states she awoke this morning with increased wheezing. Used her nebulizer without relief. No cough. No congestion. No fever. No chills. Denies any possibility of . Nothing makes it better or worse. No known Covid exposures. Review of Systems Constitutional: denies: Fever, Chills Nose: denies: Rhinorrhea / runny nose, Congestion Throat: denies: Sore throat Cardiac: denies: Chest pain / pressure, Palpitations Respiratory: reports: Dyspnea. denies: Cough : denies: Now EGA Skin: denies: Rash Musculoskeletal: denies: Neck pain, Back pain Neurologic: denies: Headache PD PAST MEDICAL HISTORY - Past Medical History Cardiovascular: None Respiratory: Asthma Neuro: None Endocrine/Autoimmune: None GI: None COMMERCIAL CREDIT LEAD: None : None HEENT: None Psych: None Musculoskeletal: None Derm: None - Past Surgical History Past Surgical History: No General: Appendectomy - Present Medications Home Medications: Ambulatory Orders Medication Instructions Recorded Confirmed Sertraline HCl [Zoloft] 100 mg PO DAILY 11/11/20 11/11/20 Albuterol Sulf [Ventolin Hfa 1 - 2 puffs INH Q4HR PRN #1 inhaler 07/27/21 Inhaler] predniSONE [Deltasone] 10 mg PO [id number] #42 tab 07/27/21 - Allergies Allergies/Adverse Reactions: Allergies Allergy/AdvReac Type Severity Reaction Status Date / Time No Known Drug Allergies Allergy Verified 07/27/21 12:16 - Social History Does the pt smoke?: No Smoking Status: Never smoker Does the pt drink ETOH?: No Does the pt have substance abuse?: No - Immunizations Immunizations are current?: Yes - POLST Patient has POLST: No PD ED PE NORMAL - Vitals Vital signs reviewed: Yes - General General: Alert and oriented X 3, No acute distress - HEENT HEENT: Moist mucous membranes - Neck Neck: Supple, no meningeal sign - Cardiac Cardiac: RRR - Respiratory Respiratory: No respiratory distress, Other (Audible wheezing bilaterally) - Abdomen Abdomen: Soft, Non tender, Non distended - Derm Derm: Warm and dry - Extremities Extremities: No edema, No calf tenderness / cord - Neuro Neuro: Alert and oriented X 3 - Psych Psych: Normal mood, Normal affect Results - Vitals Vitals: Vital Signs - 24 hr 07/27/21 07/27/21 07/27/21 12:12 12:16 13:45 Temperature 36.5 C 36.5 C Heart Rate 100 100 72 Respiratory 18 18 18 Rate Blood Pressure 110/67 110/67 O2 Saturation 100 100 07/27/21 14:16 Temperature 36.5 C Heart Rate 70 Respiratory 16 Rate Blood Pressure 112/68 O2 Saturation 100 Oxygen O2 Source Room air PD MEDICAL DECISION MAKING - ED course Complexity details: re-evaluated patient, considered differential, d/w patient ED course: Patient is much improved after nebulizer treatment and steroids. No longer audibly wheezing. No respiratory distress. We will have her follow-up with her PCP for further care. Will place her on steroids and prescribe a new inhaler for home along with a spacer. Patient counseled regarding signs and symptoms for which I believe and urgent re-evaluation would be necessary. Patient with good understanding of and agreement to plan and is comfortable going home at this time This document was made in part using voice recognition software. While efforts are made to proofread this document, sound alike and grammatical errors may occur. Departure - Departure Disposition: 01 Home, Self Care Clinical Impression: Asthma exacerbation Qualifiers: Asthma severity: unspecified severity Asthma persistence: intermittent Qualified Code(s): J45.21 - Mild intermittent asthma with (acute) exacerbation Condition: Good Instructions: ED Reactive Airway Disease Follow-Up: Garrett Dawn MD [Primary Care Provider] - Within 1 week Prescriptions: Albuterol Sulf [Ventolin Hfa Inhaler] 1 - 2 puffs INH Q4HR PRN #1 inhaler PRN Reason: Shortness Of Air/Wheezing predniSONE [Deltasone] 10 mg PO [id number] #42 tab Comments: Your prescriptions were sent to [facility] in [place]. Please follow-up with your doctor for further care. Return if you worsen. You should improve within the next 12 to 24 hours. Discharge Date/Time: 07/27/21 14:44
[2021-07-27 14:44] VITALS: BP 112/68
== END 2021-07-27 14:44 | disposition home or self-care (01) ==
LOC: ED 12:04
DX: J45.21 Mild intermittent asthma with (acute) exacerbation (principal)
CPT/HCPCS: 87635; 94640; 99283; J7512

== ENCOUNTER 2022-10-28 08:00 | Outpatient (CLI) | payer BC, MEDICAID ==
[2022-10-28 11:48] LABS: BILIRUBIN,URINE NEGATIVE (NEGATIVE); GLUCOSE, URINE (UA) NEGATIVE (NEGATIVE); KETONES,URINE (UA) NEGATIVE (NEGATIVE); LEUKOCYTE ESTERASE, URINE NEGATIVE (NEGATIVE); NITRITE,URINE NEGATIVE (NEGATIVE); OCCULT BLOOD,URINE NEGATIVE (NEGATIVE); PROTEIN,URINE NEGATIVE (NEGATIVE); UROBILINOGEN,URINE 0.2 (NORMAL) E.U./dL (NORMAL)
[2022-10-28 11:55] LABS: BACTERIA,URINE Rare /HPF (None Seen); CLARITY,URINE CLEAR (CLEAR); RBC,URINE 0-5 /HPF (0-5); SQUAMOUS EPITHELIAL CELL,UR RARE Squamous (<= Few); WBC,URINE 0-3 /HPF (0-5)
== END 2022-10-28 23:59 | disposition home or self-care (01) ==
LOC: LAB.WC 08:00
PROVIDERS: ATTEND Nurse Practitioner
DX: Z32.01 Encounter for pregnancy test, result positive (principal)
CPT/HCPCS: 81001; 87086

== ENCOUNTER 2022-11-01 16:44 | Outpatient (CLI) | payer BC ==
[2022-11-01 17:09] LABS: BASOPHILS % (AUTO) 0.3 %; EOSINOPHILS # (AUTO) 0.4 10^3/uL (0.0-0.7); EOSINOPHILS % (AUTO) 3.1 %; HCT - HEMATOCRIT 40.2 % (37.0-47.0); HGB - HEMOGLOBIN 13.7 g/dL (12.0-16.0); LYMPHOCYTES # (AUTO) 2.3 10^3/uL (1.5-3.5); LYMPHOCYTES % (AUTO) 20.1 %; MEAN CORPUSCULAR HEMOGLOBIN 30.3 pg (27.0-31.0); MEAN CORPUSCULAR HGB CONC 34.1 g/dL (32.0-36.0); MEAN CORPUSCULAR VOLUME 88.9 fL (81.0-99.0); MEAN PLATELET VOLUME 10.3 fL (7.9-10.8); MONOCYTES % (AUTO) 8.6 %; NEUTROPHILS # (AUTO) 7.8 10^3/uL (1.5-6.6); NEUTROPHILS % (AUTO) 67.7 %; PLT - PLATELET COUNT 317 10^3/uL (130-450); RED BLOOD COUNT 4.52 10^6/uL (4.20-5.40); RED CELL DISTRIBUTION WIDTH 13.1 % (12.0-15.0); WHITE BLOOD COUNT 11.5 x10^3/uL (4.8-10.8)
[2022-11-02 04:08] LABS: HBsAG SCREEN Negative (Negative); RPR Non Reactive (Non Reactive)
[2022-11-02 08:10] LABS: HCV AB Non Reactive (Non Reactive); HIV SCREEN 4TH GENERATION Non Reactive (Non Reactive)
[2022-11-02 12:09] LABS: VARICELLA-ZOSTER AB IGG <135 index (Immune >165)
== END 2022-11-01 16:45 | disposition home or self-care (01) ==
LOC: LAB 16:44
PROVIDERS: ATTEND Nurse Practitioner
DX: Z36.89 Encounter for other specified antenatal screening (principal)
CPT/HCPCS: 36415; 85025; 86592; 86762; 86787; 86803; 86850; 86900; 86901; 87340; 87389

== ENCOUNTER 2022-11-18 17:01 | Outpatient (CLI) | payer BC ==
--- NOTE | 2022-11-18 21:06 | Ultrasound Report ---
PROCEDURE: OB First Trimester INDICATIONS: POSITIVE TEST OUTSIDE/PRIOR DATING DATA: Last menstrual period (LMP): 09/09/2022. LMP-based estimated date of delivery (SHANICE): 06/16/2023. First dating scan (date and location): 11/18/2022, current study. Estimated date of delivery (SHANICE) from first dating scan: 06/18/2023. TECHNIQUE: Real-time scanning was performed of the fetus and maternal pelvic organs, with image documentation. COMPARISON: None FINDINGS: The cervix is closed and measures 4.1 cm in length. The uterus is vertically oriented and contains a fundal gestational sac. Mean gestational sac diameter is 4.1 cm corresponding to a 10 week 2 day gestation. It contains a single living fetus with a heart rate of 166 beats per minutes. [place] ge crown-rump length is 2.89 cm corresponding to a 9 week 5 day gestation. Implantation bleed is seen along the anterior-inferior aspect of the gestational sac, less than 10% o f sac circumference. Maternal ovaries are within normal limits. IMPRESSION: 1. Single living intrauterine with a gestational age of 9 weeks 5 days and estimated due da te of 06/18/2023. This is in good agreement with the clinically assigned due date of 06/16/2023. Reviewed by: Sejal Navarrete MD on 11/18/2022 9:04 PM PDT Approved by: Sejal Navarrete MD on 11/18/2022 9:04 PM PDT Station ID: [id number]
== END 2022-11-18 17:02 | disposition home or self-care (01) ==
LOC: DI 17:01
PROVIDERS: ATTEND Nurse Practitioner
DX: Z34.91 Encounter for supervision of normal pregnancy, unspecified, first trimester (principal)

== ENCOUNTER 2022-11-29 08:00 | Outpatient (CLI) | payer BC, MEDICAID ==
[2022-11-29 20:18] LABS: CHLAMYDIA TRACHOMATIS DNA NEGATIVE (NEGATIVE); NEISSERIA GONORRHOEAE DNA NEGATIVE (NEGATIVE); TRICHOMONAS VAGINALIS DNA NEGATIVE (NEGATIVE)
== END 2022-11-29 23:59 | disposition home or self-care (01) ==
LOC: LAB.WC 08:00
PROVIDERS: ATTEND Obstetrics & Gynecology
DX: Z11.3 Encounter for screening for infections with a predominantly sexual mode of transmission (principal)
CPT/HCPCS: 87491; 87591; 87661

== ENCOUNTER 2023-01-30 16:49 | Outpatient (CLI) | payer MEDICAID ==
--- NOTE | 2023-01-31 14:21 | Ultrasound Report ---
PROCEDURE: OB Detailed Eval INDICATIONS: SUPERVISION OF OUTSIDE/PRIOR DATING DATA: Last menstrual period (LMP): 09/09/2022. LMP-based estimated date of delivery (SHANICE): 06/16/2023. First dating scan (date and location): 10/21/2022. Estimated date of delivery (SHANICE) from first dating scan: 06/18/2023. The below data below was generated using the working SHANICE of 06/18/2023 TECHNIQUE: Real-time scanning was performed of the fetus, with image documentation and biometric measurements. Endovaginal scanning: Not indicated COMPARISON: 11/18/2022. FINDINGS: General: A single living intrauterine gestation is present. Presentation: Vertex Placenta: Placental position is anterior, without previa. Amniotic fluid index: 10.8 cm, within normal limits for gestational age. heart rate: 135 beats per minute. Maternal cervical canal: 3.57 cm long; normal length is 2.5 cm or more. biometrics: Biparietal diameter: 5.1 cm, 21 weeks, 3 days. Head circumference: 19.17 cm, 21 weeks, 3 days. Abdominal circumference: 15.69 cm, 20 weeks, 6 days. Femur length: 3.39 cm, 20 weeks, 5 days. Estimated gestational age from initial scan: 21 weeks, 4 days. Composite gestational age from present scan: 20 weeks, 4 days. Estimated weight and percentile: 381 g, 13.7%. Measurement variability in biometric dating: +/- 10 days from 12-20 weeks gestation, +/- 2 weeks from 20-30 weeks gestation, +/- 3 weeks at 30 weeks gestation or later. Anatomic survey: Neuro: Ventricles are normal at less than 10 mm. Cisterna magna is normal at 3-11 mm. Cerebellum i s normal in size and morphology. Nuchal skin fold: Normal at less than 6 mm between 14 and 20 weeks gestational age. Face: Nose and lips, facial profile are normal. Spine: Not well seen. Heart: 4-chambered heart is present, with normal ventricular outflow tracts. Diaphragm: Diaphragm is not well seen. Stomach: Left-sided stomach is present. Kidneys: No hydronephrosis. Normal is less than 5 mm in 2nd trimester, less than 7 mm in 3rd trimester. Cord: 3 vessel cord. Abdominal cord insertion is not well seen. Bladder: Normal in size. Extremities: Bilateral feet are not well seen. Bilateral upper extremities are well visualized and ar e within normal limits. IMPRESSION: 1. Single live intrauterine gestation with fetus in vertex presentation. heart rate is 135 bpm. Normal amount of amniotic fluid. Estimated weight is at 13.7%. 2. Limited examination of spine, chest, diaphragm, abdominal CORD insertion and bilateral feet due to position. Rest of the anatomic survey is within normal limits. Reviewed by: Phan La MD on 01/31/2023 2:20 PM PDT Approved by: Phan La MD on 01/31/2023 2:20 PM PDT Station ID: [id number]
== END 2023-01-30 16:50 | disposition home or self-care (01) ==
LOC: DI 16:49
PROVIDERS: ATTEND Obstetrics & Gynecology
DX: Z34.02 Encounter for supervision of normal first pregnancy, second trimester (principal)

== ENCOUNTER 2023-02-09 19:47 | Outpatient (CLI) | payer MEDICAID ==
--- NOTE | 2023-02-10 10:22 | Ultrasound Report ---
PROCEDURE: OB F/U or Repeat INDICATIONS: SUPERVISION OF OUTSIDE/PRIOR DATING DATA: Last menstrual period (LMP): 09/09/2022. LMP-based estimated date of delivery (SHANICE): 06/16/2023. First dating scan (date and location): 11/18/2022. Estimated date of delivery (SHANICE) from first dating scan: 06/18/2023. TECHNIQUE: Real-time scanning was performed of the fetus, with image documentation COMPARISON: 01/30/2023 FINDINGS: General: A single living intrauterine gestation is present. Presentation: Transverse head maternal left Placenta: Placental position is anterior, without previa. Amniotic fluid index: 12 cm, within normal limits for gestational age. heart rate: 135 beats per minute. Maternal cervical canal: 4.1 cm long; normal length is 2.5 cm or more. Estimated gestational age today is 23 weeks. Most of the spine is within normal limits, but the sacral spine is not well seen. The overlying skin line is probably normal, but also suboptimally visualized Diaphragm/chest are within normal limits. Lower extremities are within normal limits. Cord insertion within normal limits. IMPRESSION: Living intrauterine gestation at 23 weeks. Sacral spine remains suboptimally visualized due to position. Overlying skin line is probably n ormal. Chest/diaphragm, both lower extremities, cord insertion are unremarkable on today's study. Con billet inspector repeat sonographic evaluation. Reviewed by: Fabián Roca MD on 02/10/2023 10:21 AM PDT Approved by: Fabián Roca MD on 02/10/2023 10:21 AM PDT Station ID: [id number]
== END 2023-02-09 19:48 | disposition home or self-care (01) ==
LOC: DI 19:47
PROVIDERS: ATTEND Obstetrics & Gynecology
DX: Z34.02 Encounter for supervision of normal first pregnancy, second trimester (principal)

== ENCOUNTER 2023-04-13 21:02 | Outpatient (CLI) | payer MEDICAID ==
--- NOTE | 2023-04-14 12:05 | Ultrasound Report ---
PROCEDURE: OB F/U or Repeat INDICATIONS: 32 WEEKS GESTATION OF OUTSIDE/PRIOR DATING DATA: Last menstrual period (LMP): 09/09/2022. LMP-based estimated date of delivery (SHANICE): 06/16/2023. First dating scan (date and location): 11/18/2022, physician's office. Estimated date of delivery (SHANICE) from first dating scan: 06/18/2023. The below data below was generated using the ultrasound SHANICE of 06/18/2023 TECHNIQUE: Real-time scanning was performed of the fetus, with image documentation and biometric measurements. Endovaginal scanning: Not performed. COMPARISON: 02/09/2023 FINDINGS: General: A single living intrauterine gestation is present. Presentation: Vertex Placenta: Placental position is anterior, without previa. Amniotic fluid index: 14.1 cm, within normal limits for gestational age. heart rate: 145 beats per minute. Maternal cervical canal: Within normal limits cm long; normal length is 2.5 cm or more. biometrics: Biparietal diameter: 8.5 cm, 34 weeks 2 days Head circumference: 31.4 cm, 35 weeks 2 days Abdominal circumference: 28.75 cm, 32 weeks 5 days Femur length: 6.11 cm, 31 weeks 5 days Estimated gestational age from initial scan: 30 weeks 4 days Composite gestational age from present scan: 33 weeks 4 days Estimated weight and percentile: 2016 g, 96.8 percentile Measurement variability in biometric dating: +/- 10 days from 12-20 weeks gestation, +/- 2 weeks from 20-30 weeks gestation, +/- 3 weeks at 30 weeks gestation or more. Other: Sacral spine seen and is unremarkable IMPRESSION: 1. Accelerated growth. Current ultrasound age is 21 days greater than clinical age. EFW is 96.8 %. 2. Unremarkable sacral spine. Reviewed by: Dejuan Hilario MD on 04/14/2023 12:04 PM PDT Approved by: Dejuan Hilario MD on 04/14/2023 12:04 PM PDT Station ID: [id number]
== END 2023-04-13 21:03 | disposition home or self-care (01) ==
LOC: DI 21:02
PROVIDERS: ATTEND Nurse Practitioner Obstetrics & Gynecology
DX: O36.63X0 Maternal care for excessive fetal growth, third trimester, not applicable or unspecified (principal); Z3A.33 33 weeks gestation of pregnancy

== ENCOUNTER 2023-10-04 16:16 | Emergency (ER) | payer MEDICAID ==
[2023-10-04] MEDS: SODIUM CHLORIDE 0.9% 2,000 ML IV STA (16:25)
[2023-10-04 16:40] LABS: BASOPHILS % (AUTO) 0.3 %; EOSINOPHILS # (AUTO) 0.2 10^3/uL (0.0-0.7); EOSINOPHILS % (AUTO) 1.4 %; HCT - HEMATOCRIT 46.1 % (37.0-47.0); HGB - HEMOGLOBIN 15.6 g/dL (12.0-16.0); LYMPHOCYTES # (AUTO) 1.1 10^3/uL (1.5-3.5); LYMPHOCYTES % (AUTO) 9.3 %; MEAN CORPUSCULAR HEMOGLOBIN 31.4 pg (27.0-31.0); MEAN CORPUSCULAR HGB CONC 33.8 g/dL (32.0-36.0); MEAN CORPUSCULAR VOLUME 92.8 fL (81.0-99.0); MEAN PLATELET VOLUME 10.1 fL (7.9-10.8); MONOCYTES # (AUTO) 1.1 10^3/uL (0.0-1.0); MONOCYTES % (AUTO) 9.6 %; NEUTROPHILS # (AUTO) 9.3 10^3/uL (1.5-6.6); NEUTROPHILS % (AUTO) 79.2 %; PLT - PLATELET COUNT 316 10^3/uL (130-450); RED BLOOD COUNT 4.97 10^6/uL (4.20-5.40); RED CELL DISTRIBUTION WIDTH 12.3 % (12.0-15.0); WHITE BLOOD COUNT 11.8 x10^3/uL (4.8-10.8)
[2023-10-04 16:54] LABS: ALBUMIN 5.1 g/dL (3.2-5.5); ALBUMIN/GLOBULIN RATIO 1.8 (1.0-2.2); BILIRUBIN,TOTAL 0.8 mg/dL (0.2-1.0); CREATININE 0.8 mg/dL (0.6-1.3); POTASSIUM 3.8 mmol/L (3.5-4.5); TOTAL PROTEIN 7.9 g/dL (6.4-8.9)
--- NOTE | 2023-10-04 16:55 | ED Physician Documentation ---
History of Present Illness - Stated complaint Stated Complaint: NAUSEA/VOMIT - Chief complaint Chief Complaint: Abd Pain - History obtained from History obtained from: Patient, Family - History of Present Illness Timing: Today Pain level max: 0 Pain level now: 0 - Additonal information Additional information: Patient is a 23-year-old female who to the emergency department nausea, vomiting, diarrhea today. Had family has been sick with same. No fevers. She is breast-feeding her 3-month-old. Has a history of vasovagal syncope. Had a syncopal event in triage. No recent antibiotics. No recent travel. No chills. There is no blood in the stool. She is not currently . The illness started with her nephew 3 days ago, then her yesterday and now her today. Afebrile. Review of Systems Constitutional: denies: Fever, Chills Nose: denies: Rhinorrhea / runny nose, Congestion GI: reports: Vomiting, Diarrhea. denies: Hematemesis, Bloody / black stool : denies: Dysuria, Frequency, Hesitancy, Now EGA Skin: denies: Rash Musculoskeletal: denies: Neck pain, Back pain Neurologic: denies: Headache PD PAST MEDICAL HISTORY - Past Medical History Cardiovascular: None Respiratory: Asthma Neuro: None Endocrine/Autoimmune: None GI: None POLICE CLERK: None : None HEENT: None Psych: None Musculoskeletal: None Derm: None - Past Surgical History Past Surgical History: No General: Appendectomy - Present Medications Home Medications: Ambulatory Orders Medication Instructions Recorded Confirmed Albuterol Sulf [Ventolin Hfa 1 - 2 puffs INH Q4HR PRN #1 inhaler 07/27/21 Inhaler] Loperamide HCl [Imodium A-D] 2 mg PO Q4H PRN #30 tablet 10/04/23 Ondansetron Odt [Zofran] 4 mg TL Q6H PRN #10 tablet 10/04/23 busPIRone [Buspar] 5 mg PO DAILY 10/04/23 - Allergies Allergies/Adverse Reactions: Allergies Allergy/AdvReac Type Severity Reaction Status Date / Time No Known Drug Allergies Allergy Verified 10/04/23 16:24 - Social History Does the pt smoke?: No Smoking Status: Never smoker Does the pt drink ETOH?: No Does the pt have substance abuse?: No - Immunizations Immunizations are current?: Yes - POLST Patient has POLST: No PD ED PE NORMAL - Vitals Vital signs reviewed: Yes - General General: Alert and oriented X 3, No acute distress - HEENT HEENT: Moist mucous membranes - Neck Neck: Supple, no meningeal sign - Cardiac Cardiac: RRR, Strong equal pulses - Respiratory Respiratory: No respiratory distress, Clear bilaterally - Abdomen Abdomen: Soft, Non tender, Non distended - Back Back: No CVA TTP, No spinal TTP - Derm Derm: Warm and dry, No rash - Extremities Extremities: No edema - Neuro Neuro: Alert and oriented X 3 - Psych Psych: Normal mood, Normal affect Results - Vitals Vitals: Vital Signs - 24 hr 10/04/23 10/04/23 10/04/23 16:17 16:24 17:24 Temperature 36.5 C Heart Rate 100 78 93 Respiratory 16 20 17 Rate Blood Pressure 113/71 98/46 L 99/48 L O2 Saturation 100 100 99 10/04/23 18:41 Temperature Heart Rate 82 Respiratory 14 Rate Blood Pressure 104/59 L O2 Saturation 98 Oxygen O2 Source Room air - Labs Labs: Laboratory Tests 10/04/23 10/04/23 10/04/23 16:30 16:30 18:40 WBC 11.8 H RBC 4.97 Hgb 15.6 Hct 46.1 MCV 92.8 MCH 31.4 H MCHC 33.8 RDW 12.3 Plt Count 316 MPV 10.1 Neut # (Auto) 9.3 H Lymph # (Auto) 1.1 L [place] # (Auto) 1.1 H Eos # (Auto) 0.2 Baso # (Auto) 0.0 Absolute Nucleated RBC 0.00 Nucleated RBC % 0.0 Sodium 138 Potassium 3.8 Chloride 106 Carbon Dioxide 20 L Anion Gap 12.0 BUN 17 Creatinine 0.8 Estimated GFR (MDRD) 88 L Glucose 117 H Calcium 10.0 Total Bilirubin 0.8 AST 29 ALT 45 Alkaline Phosphatase 98 Total Protein 7.9 Albumin 5.1 Globulin 2.8 Albumin/Globulin Ratio 1.8 Lipase 31 Urine Color YELLOW Urine Clarity CLEAR Urine pH 6.0 Ur Specific Happy 1.025 Urine Protein NEGATIVE Urine Glucose (UA) NEGATIVE Urine Ketones 40 H Urine Occult Blood NEGATIVE Urine Nitrite NEGATIVE Urine Bilirubin NEGATIVE Urine Urobilinogen 0.2 (NORMAL) Ur Leukocyte Esterase NEGATIVE Ur Microscopic Review NOT INDICATED Urine Culture Comments NOT INDICATED Urine HCG, Qual NEGATIVE PD Medical Decision Making - ED course Complexity details: reviewed results, re-evaluated patient, considered differential, d/w patient, d/w family ED course: Patient is well-appearing, nontoxic. Feels much better after IV fluids, Lomotil and Zofran. Tolerating p.o. without difficulty. Has a longstanding history of vasovagal syncope, no recurrent syncope here. She request antidiarrheal medication for home as well as antinausea medication. Will prescribe this for her. Abdomen is soft, nontender nondistended on serial exam. No fevers. No evidence of sepsis. Likely viral gastroenteritis that has been going through the family. Patient counseled regarding signs and symptoms for which I believe and urgent re-evaluation would be necessary. Patient with good understanding of and agreement to plan and is comfortable going home at this time This document was made in part using voice recognition software. While efforts are made to proofread this document, sound alike and grammatical errors may occur. Departure - Departure Disposition: 01 Home, Self Care Clinical Impression: Viral gastroenteritis Condition: Good Instructions: ED Gastroenteritis Viral Follow-Up: your,doctor in 1 week [Other] Prescriptions: Loperamide HCl [Imodium A-D] 2 mg PO Q4H PRN #30 tablet PRN Reason: Diarrhea Ondansetron Odt [Zofran] 4 mg TL Q6H PRN #10 tablet PRN Reason: Nausea / Vomiting Comments: Go home and rest. Drink plenty of fluids. You were given IV fluids here tonig ht. This appears to be a viral gastroenteritis. This should improve over the next 24 to 36 hours. Please return if you worsen. Your prescriptions were sent to [facility] in [place]. Forms: PCP List Discharge Date/Time: 10/04/23 19:20
[2023-10-04] MEDS: ONDANSETRON 4 MG/2 ML VIAL IVP STA (17:01)
[2023-10-04] MEDS: DIPHENOX/ATROPINE 2.5/0.025 MG TABLET PO STA (17:47)
[2023-10-04 18:48] LABS: BILIRUBIN,URINE NEGATIVE (NEGATIVE); GLUCOSE, URINE (UA) NEGATIVE (NEGATIVE); KETONES,URINE (UA) 40 mg/dL (NEGATIVE); LEUKOCYTE ESTERASE, URINE NEGATIVE (NEGATIVE); NITRITE,URINE NEGATIVE (NEGATIVE); OCCULT BLOOD,URINE NEGATIVE (NEGATIVE); PROTEIN,URINE NEGATIVE (NEGATIVE); UROBILINOGEN,URINE 0.2 (NORMAL) E.U./dL (NORMAL)
[2023-10-04 18:50] LABS: CLARITY,URINE CLEAR (CLEAR); HCG UR QUAL NEGATIVE
[2023-10-04 18:51] VITALS: BP 104/59; O2SAT 98
== END 2023-10-04 19:20 | disposition home or self-care (01) ==
LOC: ED 16:16
DX: A08.4 Viral intestinal infection, unspecified (principal); R55 Syncope and collapse
CPT/HCPCS: 36415; 80053; 81003; 81025; 83690; 85025; 96361; 96374; 99283; A9270; 81001; 87086

== ENCOUNTER 2024-03-29 08:00 | Outpatient (CLI) | payer BC, MEDICAID ==
[2024-03-29 16:40] LABS: BILIRUBIN,URINE NEGATIVE (NEGATIVE); GLUCOSE, URINE (UA) NEGATIVE (NEGATIVE); KETONES,URINE (UA) NEGATIVE (NEGATIVE); LEUKOCYTE ESTERASE, URINE NEGATIVE (NEGATIVE); NITRITE,URINE NEGATIVE (NEGATIVE); OCCULT BLOOD,URINE NEGATIVE (NEGATIVE); PROTEIN,URINE NEGATIVE (NEGATIVE); UROBILINOGEN,URINE 0.2 (NORMAL) E.U./dL (NORMAL)
[2024-03-29 16:51] LABS: BACTERIA,URINE None Seen /HPF (None Seen); CLARITY,URINE CLEAR (CLEAR); RBC,URINE None Seen /HPF (0-5); SQUAMOUS EPITHELIAL CELL,UR MANY Squamous (<= Few); WBC,URINE 0-3 /HPF (0-5)
== END 2024-03-29 23:59 | disposition home or self-care (01) ==
LOC: LAB.WC 08:00
PROVIDERS: ATTEND Nurse Practitioner
DX: Z34.90 Encounter for supervision of normal pregnancy, unspecified, unspecified trimester (principal)
CPT/HCPCS: 81001; 87086

== ENCOUNTER 2024-04-09 16:53 | Outpatient (CLI) | payer MEDICAID ==
--- NOTE | 2024-04-09 20:38 | Ultrasound Report ---
PROCEDURE: OB 1st Trimester INDICATIONS: POSITIVE TEST OUTSIDE/PRIOR DATING DATA: Last menstrual period (LMP): 02/09/2024. LMP-based estimated date of delivery (SHANICE): 11/15/2024 First dating scan (date and location): Today. Estimated date of delivery (SHANICE) from first dating scan: 11/23/2024. TECHNIQUE: Real-time scanning was performed of the fetus and maternal pelvic organs, with image documentation. COMPARISON: None. FINDINGS: Heart motion is detected at a rate is 169 bpm. [place]-rump length is 1.25 cm corresponding t o an ultrasound age of 7 weeks and 3 days. There is a right corpus luteum cyst. 2.6 x 0.9 cm small perigestational hemorrhage. Please note patient declined endovaginal examination. Yolk sac is present. IMPRESSION: Transabdominal examination. Living intrauterine gestation at an ultrasound age of 7 weeks and 3 days. This is not consistent with reported LMP and clinical correlation is needed. Small subchorionic hemorrhage Reviewed by: Fabián Roca MD on 04/09/2024 8:37 PM PDT Approved by: Fabián Roca MD on 04/09/2024 8:37 PM PDT Station ID: [id number]
== END 2024-04-09 16:54 | disposition home or self-care (01) ==
LOC: DI 16:53
PROVIDERS: ATTEND Nurse Practitioner
DX: O20.8 Other hemorrhage in early pregnancy (principal); Z3A.01 Less than 8 weeks gestation of pregnancy; Z32.01 Encounter for pregnancy test, result positive

== ENCOUNTER 2024-04-17 08:00 | Outpatient (CLI) | payer MEDICAID ==
[2024-04-17 12:33] LABS: BASOPHILS % (AUTO) 0.3 %; EOSINOPHILS # (AUTO) 0.2 10^3/uL (0.0-0.7); EOSINOPHILS % (AUTO) 1.7 %; HCT - HEMATOCRIT 40.4 % (37.0-47.0); HGB - HEMOGLOBIN 13.9 g/dL (12.0-16.0); LYMPHOCYTES # (AUTO) 2.2 10^3/uL (1.5-3.5); LYMPHOCYTES % (AUTO) 18.9 %; MEAN CORPUSCULAR HEMOGLOBIN 32.3 pg (27.0-31.0); MEAN CORPUSCULAR HGB CONC 34.4 g/dL (32.0-36.0); MEAN PLATELET VOLUME 10.7 fL (7.9-10.8); MONOCYTES # (AUTO) 0.8 10^3/uL (0.0-1.0); MONOCYTES % (AUTO) 6.9 %; NEUTROPHILS # (AUTO) 8.5 10^3/uL (1.5-6.6); NEUTROPHILS % (AUTO) 71.9 %; PLT - PLATELET COUNT 293 10^3/uL (130-450); RED CELL DISTRIBUTION WIDTH 12.4 % (12.0-15.0); WHITE BLOOD COUNT 11.9 x10^3/uL (4.8-10.8)
[2024-04-17 12:51] LABS: ALBUMIN 4.1 g/dL (3.2-5.5); ALBUMIN/GLOBULIN RATIO 1.4 (1.0-2.2); BILIRUBIN,TOTAL 0.4 mg/dL (0.2-1.0); CALCIUM 9.1 mg/dL (8.5-10.3); CREATININE 0.5 mg/dL (0.6-1.3); POTASSIUM 3.7 mmol/L (3.5-4.5)
[2024-04-17 13:01] LABS: THYROID STIMULATING HORMONE 0.76 uIU/mL (0.34-5.60)
[2024-04-17 15:44] LABS: CHLAMYDIA TRACHOMATIS DNA NEGATIVE (NEGATIVE); NEISSERIA GONORRHOEAE DNA NEGATIVE (NEGATIVE); TRICHOMONAS VAGINALIS DNA NEGATIVE (NEGATIVE)
[2024-04-17 20:45] LABS: ESTIMATED AVERAGE GLUCOSE 88 mg/dL (70-100); HEMOGLOBIN A1c% 4.7 % (4.27-6.07)
[2024-04-18 02:08] LABS: HBsAG SCREEN Negative (Negative); HIV SCREEN 4TH GENERATION Non Reactive (Non Reactive)
[2024-04-18 06:17] LABS: RPR Non Reactive (Non Reactive)
[2024-04-18 12:10] LABS: VARICELLA-ZOSTER AB IGG 280 index (Immune >165)
[2024-04-20 01:08] LABS: HCV AB Non Reactive (Non Reactive)
== END 2024-04-17 23:59 | disposition home or self-care (01) ==
LOC: LAB.WC 08:00
PROVIDERS: ATTEND Nurse Practitioner
DX: Z34.90 Encounter for supervision of normal pregnancy, unspecified, unspecified trimester (principal); R55 Syncope and collapse
CPT/HCPCS: 36415; 80053; 82728; 83036; 84443; 85025; 86592; 86762; 86787; 86803; 86850; 86900; 86901; 87340; 87389; 87491; 87591; 87661

== ENCOUNTER 2024-11-20 19:42 | Inpatient (IN) ==
--- NOTE | 2024-11-20 21:15 | HISTORY & PHYSICAL EXAMINATION ---
Admit History Smoking Status: Never smoker Other Maternal History Other Maternal History: HPI: This 24 yo @ 39+4 weeks by 10+2 week ultrasound. She started to contract more intensely at about 1030, they became more reglar by 1900 and she could no longer manage the pain at home. She arrived on the unit about 1999. Upon arrival she could not tolerate an exam. She is vertex by leopolds and membranes intact. Shortly after arrival, she requested an epidural and was writing in pain with contractions every 3-4 minutes. She has been a patient of [facility] for the duration of her which has remained uncomplicated with the exception of mild anxiety/depression managed well on buspirone, and mild intermittent asthma (albuterol PRN). LMP: 02/09/24 SHANICE by LMP: 11/15/24 US by 10.2wk U/S 11/23/2024 Final SHANICE: 11/23/2024 G1: 06/21/2023 : @ 40+4, male, 8#15oz ([facility]) G2: current Allergies: NKDA RX: albuterol, buspirone, pnv In the event of an emergency, accepts the administration of blood products. Medical Hx: Anxiety/depression, asthma- mild, intermittent Surgical Hx: Appendectomy 2016; Gray teeth 2017 Social Hx: Monogamous with male partner. Denies current use of alcohol or tobacco, marijuana or other recreational drugs. Reports that she is safe in current relationship. Family Hx: Denies family history of congenital anomalies, Cystic Fibrosis or chr omosomal abnormalities; Asthma - aunt, father; Depressed - mother, MGM FOB/: Sara Pre- Weight: 140.2 BMI: 24.15 Problems: -Anxiety/Depression: stable -Asthma-mild, intermittent Blood type: A+ Antibody Screen: Negative CBC: PLT 293 HCT 40.4 HGB 13.9 RUB: Immune VZV: Immune HBsAg: Negative HepC: NR RPR/AB-EIA: NR HIV: NR Flu: 05/28/2024 Covid: 2020 series PAP: unsure, will plan to complete pp if other records not available. GC/CT: 04/17 Negative HSV: denies in self and partner Genetic testing: declines A1C 4.7 FAS: 07/11/2024 Placenta: anterior fundal Cord: 3VC MADISON: 12.4 EFW: 398.7g 50gm OGCT: 112 TDAP: 09/03/2024 Breast Pump: 09/03/2024 3rd trimester PLT 248 HCT 37.1 HGB 12.5 3rd trimester RPR NR GBS: 10/29/2024 positive Delivery plan: intends unmedicated delivery, but okay with epidural if needed Contraception: / abstinence, okay with closely spaced pregnancies Physical exam: Normocephalic, atraumatic No increased work of breathing. Moaning in pain Abdomen gravid, soft, nontender. EFW 3700g FHR baseline 135, moderate variability, + accelerations, no decelerations Contractions palpate strong every 3-4 minutes with soft resting tone SVE not tolerated , vertex, membranes intact Bilateral LE's no edema Mood is good. Assessment: 24 yo @ 39+4 weeks gestation by 10+2 wk U/S Active labor FHR 135 Cat I POSITIVE Plan: Admit to [facility] for expectant management and pain management Continuous monitoring Ampicillin for GBS prophalaxis Jacuzzi PRN. Nitrous oxide PRN. Epidural PRN Maternal Request. Anticipate . HPI Current : Vital Signs Temperature 36.7 C 11/20/24 19:53 Pulse Rate 84 11/20/24 19:53 Respiratory Rate 20 11/20/24 19:53 Blood Pressure 111/62 11/20/24 19:53 Meds/Allgy Home Medications Ambulatory Orders Medication Instructions Recorded Confirmed buspirone 5 mg tablet 5 mg PO DAILY 10/04/23 11/15/24 prenat.vits,paula,[id number] 1 tab PO DAILY 05/28/24 11/15/24 albuterol sulfate 90 mcg/actuation 2 inh inhalation Q4-6H PRN 10/25/24 11/15/24 aerosol inhaler shortness of breath or wheezing #6.7 grams Allergies Allergies Allergy/AdvReac Type Severity Reaction Status Date / Time CAT Allergy Unknown Unknown Uncoded 11/15/24 13:54 POLLENS Allergy Unknown Unknown Uncoded 11/15/24 13:54 SMOKE Allergy Unknown Unknown Uncoded 11/15/24 13:54 PFSH Active Problems All Active Problems (Updated 10/29/24 @ 18:27 by Wendi Guajardo MA) Encounter for screening for Streptococcus B (Acute) Medication management (Acute) Asthma (Chronic) Generalized anxiety disorder (Chronic) Mental disorder during in second trimester (Acute) Supervision of normal intrauterine in multigravida in third trimester (Acute) Medical History Medical History Maternal varicella, non-immune History of suicidal ideation Scheuermanns disease Surgical History Surgical History [place] teeth extracted 2016 History of appendectomy 08/20/2016 Family History Family History Aunt Asthma Father Asthma Mother Depressed Diabetes Grandmother Depressed Ovarian cancer Social History Social History Smoking Status: Never smoker Second hand tobacco smoke exposure: No Do you dip or chew tobacco?: No Do you vape?: No Living arrangement: At home Living Condition: With spouse/s.o. Support Person: Yes Relationship: Spouse Physical Activity: None Level: Independent Do you feel safe in your home environment?: Yes Suffered physical, verbal, emotional, or financial abuse?: No History of Abuse: No ETOH Use: None Substance Use: denies use Are you sexually active?: Yes Sexual Practice Notes: Patient is currently POLST Patient has POLST: No Physical Abdominal Exam Vital Signs: Temp Pulse Resp BP 36.7 C 84 20 111/62 11/20/24 19:53 11/20/24 19:53 11/20/24 19:53 11/20/24 19:53 Plan for Labor Plan For Labor I expect patient to be DC'd or transferred within 96 hours.: Yes
[2024-11-20] MEDS ORDERED: OXYTOCIN 10 UNIT/ML VIAL IM PRN (21:17)
[2024-11-20] MEDS ORDERED: METHYLERGONOVINE 0.2 MG/ML VIAL IM PRN (21:17)
[2024-11-20] MEDS ORDERED: hydrALAZINE INJ 20 MG/ML VIAL IVP PRN (21:17)
[2024-11-20] MEDS ORDERED: fentaNYL 100 MCG/2 ML VIAL IVP PRN (21:17)
[2024-11-20] MEDS ORDERED: miSOPROStoL 200 MCG TABLET PR PRN (21:17)
[2024-11-20] MEDS ORDERED: NIFEdipine 10 MG CAPSULE PO PRN (21:17)
[2024-11-20] MEDS ORDERED: TERBUTALINE 1 MG/ML VIAL SUBQ PRN (21:17)
[2024-11-20] MEDS ORDERED: lidocaine 1% 20 ML MDV ID PRN (21:17)
[2024-11-20] MEDS ORDERED: TRANEXAMIC ACID IN NACL 1,000 MG/100 ML BAG IV PRN (21:17)
[2024-11-20] MEDS ORDERED: SODIUM CHLORIDE FLUSH 0.9% 10 ML SYRINGE IVP PRN (21:17)
--- OUTSIDE RECORDS SUMMARY | 2024-11-20 21:34 | EXTERNAL MEDICAL SUMMARY RPT | Continuity of Care Document ---
Author Organization [facility] Address [address] [place], [place] [address]te [address] [place] [id number] Phone Problems date description facility 2024-09-04 00:02 Encounter for immunization [facility] 2024-09-04 00:02 Encounter for superv ision of other normal , third trimester [facility] 2024-09-05 09:40 Encounter for superv ision of other normal , second trimester [facility] 2024-09-05 09:40 Encounter for superv ision of normal , unspecified, unspecified trimester [facility] 2024-09-06 00:04 Encounter for superv ision of other normal , second trimester [facility] 2024-09-06 00:04 Encounter for superv ision of normal , unspecified, unspecified trimester [facility] 2024-09-06 12:18 Encounter for superv ision of other normal , second trimester [facility] 2024-10-23 07:47 Mild hyperemesis gravidarum [facility] 2024-10-23 07:47 Other specified preg john related conditions, second trimester [facility] 2024-10-23 07:47 Left lower quadrant pain [facility] 2024-10-26 00:01 Mild intermittent asthma, uncom plicated [facility] 2024-10-26 00:01 Unspecified asthma, uncomplicat ed [facility] 2024-10-26 00:01 36 weeks gestation of [facility] 2024-10-26 00:01 Other [facility] (current) drug therapy [facility] 2024-10-29 18:28 Encounter for screeni ng for Streptococcus B [facility] 2024-10-29 18:29 Encounter for screeni ng for Streptococcus B [facility] 2024-10-30 00:02 Encounter for screeni ng for Streptococcus B [facility] 2024-10-31 13:55 Encounter for screeni ng for Streptococcus B [facility] Results/Labs test date facility value unit notes Result panel 1 MEAN PLATELET VOLUME 2024-09-05 10:56 [facility] 10.0 fl (missing) WHITE BLOOD COUNT 2024-09-05 10:56 [facility] 10.3 x10 3/ul (missing) GLUCOSE,1H PP 50GM DOSE 2024-09-05 10:56 [facility] 112 mg/dl Social History date description facility
[2024-11-20 21:39] LABS: BASOPHILS % (AUTO) 0.1 %; EOSINOPHILS % (AUTO) 0.2 %; HCT - HEMATOCRIT 36.1 % (37.0-47.0); HGB - HEMOGLOBIN 12.7 g/dL (12.0-16.0); LYMPHOCYTES # (AUTO) 1.4 10^3/uL (1.5-3.5); LYMPHOCYTES % (AUTO) 9.4 %; MEAN CORPUSCULAR HEMOGLOBIN 32.2 pg (27.0-31.0); MEAN CORPUSCULAR HGB CONC 35.2 g/dL (32.0-36.0); MEAN CORPUSCULAR VOLUME 91.4 fL (81.0-99.0); MEAN PLATELET VOLUME 11.2 fL (7.9-10.8); MONOCYTES # (AUTO) 0.9 10^3/uL (0.0-1.0); MONOCYTES % (AUTO) 6.2 %; NEUTROPHILS # (AUTO) 12.2 10^3/uL (1.5-6.6); NEUTROPHILS % (AUTO) 83.6 %; PLT - PLATELET COUNT 221 10^3/uL (130-450); RED BLOOD COUNT 3.95 10^6/uL (4.20-5.40); RED CELL DISTRIBUTION WIDTH 13.2 % (12.0-15.0); WHITE BLOOD COUNT 14.6 x10^3/uL (4.8-10.8)
[2024-11-20] MEDS: LACTATED RINGERS 1,000 ML IV PRN (21:41)
[2024-11-20] MEDS: AMPICILLIN 2 GM in SODIUM CHLORIDE 0.9% MINIBAG 100 ML IV ONE (21:41)
[2024-11-20] MEDS ORDERED: ROPIVACAINE 0.2% 200 MG/100 ML BAG EP ONE (21:45)
[2024-11-20] MEDS ORDERED: fentaNYL 100 MCG/2 ML VIAL ONE ×2 (21:45→23:50)
[2024-11-20] MEDS ORDERED: SODIUM CHLORIDE FLUSH 0.9% 10 ML SYRINGE IVP SCH (22:00)
[2024-11-20] MEDS ORDERED: NALBUPHINE 10 MG/ML AMP IVP PRN (22:13)
[2024-11-20] MEDS ORDERED: NALOXONE 0.4 MG/ML VIAL IVP PRN ×2 (22:13)
[2024-11-20] MEDS ORDERED: ONDANSETRON 4 MG/2 ML VIAL IVP PRN (22:13)
[2024-11-20] MEDS ORDERED: ROPIVACAINE 0.2% 200 MG/100 ML BAG EP PRN (22:13)
[2024-11-20] MEDS ORDERED: ePHEDrine 50 MG/ML VIAL IVP PRN (22:13)
--- NOTE | 2024-11-20 22:13 | ANESTHESIA PROCEDURE NOTE ---
Pre-Anesthesia VS, & Labs Diagnosis Surgical Diagnosis:: Active labor Procedure Procedure: Vaginal delivery Vitals Vital Signs: Temp Pulse Resp BP 36.7 C 84 20 111/62 11/20/24 19:53 11/20/24 19:53 11/20/24 19:53 11/20/24 19:53 NPO NPO: Other (clear liquids) Is Patient ?: Yes Lab Results Current Lab Results: Laboratory Tests 11/20/24 21:25: WBC 14.6 H, RBC 3.95 L, Hgb 12.7, Hct 36.1 L, MCV 91.4, MCH 32.2 H, MCHC 35.2, RDW 13.2, Plt Count 221, MPV 11.2 H, Neut # (Auto) 12.2 H, Lymph # (Auto) 1.4 L, [place] # (Auto) 0.9, Eos # (Auto) 0.0, Baso # (Auto) 0.0, Absolute Nucleated RBC 0.00, Nucleated RBC % 0.0 Lab results reviewed: Yes 11/20/24 21:25 Meds/Allgy Home Medications Ambulatory Orders Medication Instructions Recorded Confirmed buspirone 5 mg tablet 5 mg PO DAILY 10/04/23 11/15/24 prenat.vits,paula,[id number] 1 tab PO DAILY 05/28/24 11/15/24 albuterol sulfate 90 mcg/actuation 2 inh inhalation Q4-6H PRN 10/25/24 11/15/24 aerosol inhaler shortness of breath or wheezing #6.7 grams Allergies Allergies Allergy/AdvReac Type Severity Reaction Status Date / Time CAT Allergy Unknown Unknown Uncoded 11/15/24 13:54 POLLENS Allergy Unknown Unknown Uncoded 11/15/24 13:54 SMOKE Allergy Unknown Unknown Uncoded 11/15/24 13:54 PFSH Active Problems All Active Problems Encounter for screening for Streptococcus B (Acute) Medication management (Acute) Asthma (Chronic) Generalized anxiety disorder (Chronic) Mental disorder during in second trimester (Acute) Supervision of normal intrauterine in multigravida in third trimester (Acute) Medical History Medical History Maternal varicella, non-immune History of suicidal ideation Scheuermanns disease Surgical History Surgical History [place] teeth extracted 2017 History of appendectomy 08/20/2016 Family History Family History Aunt Asthma Father Asthma Mother Depressed Diabetes Grandmother Depressed Ovarian cancer Social History Social History Smoking Status: Never smoker Second hand tobacco smoke exposure: No Do you dip or chew tobacco?: No Do you vape?: No Living arrangement: At home Living Condition: With spouse/s.o. Support Person: Yes Relationship: Spouse Physical Activity: None Level: Independent Do you feel safe in your home environment?: Yes Suffered physical, verbal, emotional, or financial abuse?: No History of Abuse: No ETOH Use: None Substance Use: denies use Are you sexually active?: Yes Sexual Practice Notes: Patient is currently POLST Patient has POLST: No Anesthesia Exam (Expanded) Exam General: Alert, Oriented x3 and Cooperative Dental: WNL Mouth Openin Fingerbreadth Neck Mobility: Reduced Mallampati classification: II Thyromental Distance: 4-6 cm Exam Exam Vital Signs: Vital Signs x48h Temp Pulse Resp BP 11/20/24 19:53 36.7 C 84 20 111/62 Plan Plan Anesthesia Type: Epidural Consent for Procedure(s) Verified and Reviewed: Yes Code Status: Attempt Resuscitation ASA Classification ASA classification: 2-Mild systemic disease Is this case an emergency?: No
--- NOTE | 2024-11-20 23:18 | PROVIDER PROGRESS NOTE ---
HPI Current : Vital Signs Temperature 36.6 C 11/20/24 22:14 Pulse Rate 82 11/20/24 22:14 Respiratory Rate 18 11/20/24 22:14 Blood Pressure 92/54 L 11/20/24 22:14 Plan Plan: Patient is a 24yo @ 39+4 weeks gestation who came to L&D for a labor evaluation. Limited tracing. FHT 130's, moderate variability, + accelerations, no significant decelerations. Daren regularity. Writing in pain. Could not tolerate an exam. Requesting epidural. Patient was admitted to L&D for expectant management.
--- NOTE | 2024-11-20 23:25 | DELIVERY NOTE ---
Delivery Note Delivery Comments (Free Text/Narrative) Delivery Comments (Free Text/Narrative): This 24 -year-old, G 2 P1001 @ 39+4 weeks gestation by 10+2 week ultrasound presented @ 1999 on 11/20/24 in active labor and in condition. She could not initially tolerate an exam and was moaning and writing in pain requesting an epidural. Once an epidural was placed, SVE 8/80/-1, bulging bag and Vertex presentation by exam. GBS positive, treated x1 dose approximately 3 hours prior to delivery. FHR pattern demonstrated 135 baseline in a category I prior to second stage. Normal labor course. SROM occurred 11/20/2024 @ 2322. She then progressed to complete/complete 11/21/2024 @ 0001 and second stage began @ 0008. : Normal spontaneous vaginal delivery of a viable female infant on 11/21/24 @ 0032. No nuchal cord. Once shoulders delivered, Xochilt was able to lift her to her abdomen where the was stimulated, dried and placed skin to skin. Apgars 7 & 9 @ 1&5 minutes. The umbilical cord was allowed to stop pulsating at which time it was doubly clamped by delivering provider and cut by FOB. 3VC. Cord blood was obtained. Fundal massage and gently cord traction applied for active management of the third stage, placenta delivered spontaneously and intact and appeared normal @ X. EBL 50cc. Placenta appeared intact and the family will be bringing it home for incapsulation. Pitocin administered via IV for homeostasis and allowed to run freely. Uterine massage was performed until uterus was deemed firm. weight pending at this time. Inspection of the perineum noted to be swollen and bruised but intact. Uterus again massaged and found to be firm. Needle and sponge counts were correct. Uterine fundus again assessed to be firm and there was almost no bleeding. Tissues well approximated. Skin to skin initiated. Family bonding well. Both mother and baby are in stable condition.
[2024-11-20] MEDS ORDERED: SODIUM CHLORIDE 0.9% 10 ML VIAL IVP ONE (23:50)
--- NOTE | 2024-11-21 00:25 | ANESTHESIA PROCEDURE NOTE ---
Anesthesia Epidural Template Patient Report Patient Reports: positive Inadequate control (pt c/o pain with contractions, mostly pressure.) Other Comments Other Comments: Epidural bolused with 100 mcg fentanyl with 8ml PFNS. No other changes to epidural pump.
[2024-11-21] MEDS: OXYTOCIN/SODIUM CHLORIDE 500 ML IV PRN (00:40)
[2024-11-21] MEDS ORDERED: OXYTOCIN/SODIUM CHLORIDE 500 ML IV PRN (00:55)
[2024-11-21] MEDS ORDERED: SIMETHICONE CHEW 80 MG TABLET PO PRN (00:55)
[2024-11-21] MEDS ORDERED: HYDROCORTISONE 1% CREAM 28 GM TUBE TOP PRN (00:55)
[2024-11-21] MEDS ORDERED: NALOXONE 0.4 MG/ML VIAL IVP PRN (00:55)
[2024-11-21] MEDS ORDERED: ACETAMINOPHEN 500 MG TABLET PO PRN (00:55)
[2024-11-21] MEDS ORDERED: WITCH HAZEL/GLYCERIN 1 PAD TOP PRN (00:55)
[2024-11-21] MEDS ORDERED: diphenhydrAMINE 25 MG CAPSULE PO PRN (00:55)
[2024-11-21] MEDS ORDERED: ALBUTEROL NEB 2.5 MG/3 ML INH PRN (00:57)
[2024-11-21] MEDS: fentaNYL 100 MCG/2 ML VIAL IT ONE (01:11)
[2024-11-21] MEDS ORDERED: AMPICILLIN 1 GM in SODIUM CHLORIDE 0.9% MINIBAG 100 ML IV SCH (02:00)
[2024-11-21] MEDS: IBUPROFEN 600 MG TABLET PO PRN (04:09)
[2024-11-21] MEDS: DOCUSATE SODIUM 100 MG CAPSULE PO SCH (09:39)
[2024-11-21] MEDS: PRENATAL VITAMIN TABLET PO SCH (09:39)
[2024-11-21] MEDS: busPIRone 5 MG TABLET PO SCH (09:39)
--- NOTE | 2024-11-21 10:30 | PHARMACY PROGRESS NOTE ---
Best Possible Medication History Admit Date and Time: 11/20/24 2117 Home Medications Medication Instructions Recorded Confirmed Type buspirone 5 mg tablet 5 mg PO DAILY 10/04/23 11/21/24 History prenat.vits,paula,[id number] 1 tab PO DAILY 05/28/24 11/21/24 History albuterol sulfate 90 mcg/actuation 2 inh inhalation Q4-6H PRN 10/25/24 11/21/24 Rx aerosol inhaler shortness of breath or wheezing #6.7 grams Processed by: Pharmacy (Medication Reconciliation completed by [employer]) Medications reviewed in ED?: No Medication History completed: Yes Patient Interview: Completed Secondary Source(s): Insurance records [facility] Statement: As the person ultimately responsible for medication therapy, providers are able to order a medication from an existing home medication list in [facility] via the "Reconcile Routine" prior to Confirmation of that medication by learning support teacher. Such practice is discouraged except when the physician, in their clinical judgment, deems that a medical need exists for a medication without regard to previous use.
--- NOTE | 2024-11-21 18:44 | PROVIDER PROGRESS NOTE ---
Subjective Prog Note Date Prog Note Date: 11/21/24 Prog Note Time: 18:44 Subjective Subjective: Voiding without difficulty. Passing flatus. Denies BM. Patient is bonding with baby in room Breast feeding going well. Denies feeling lightheaded, dizzy or excessively fatigued. Objective General: Alert, oriented, no apparent distress. Cardiovascular: No edema. Lungs: No increased work of breathing. Abdomen: Uterus firm. Below umbilicus. No guarding or rebound tenderness. Extremities: No pain on palpation. Distal pulses intact. Assessment and Plan day 1. 25 s/p 11/21/2024 @0032 following spontaneous onset of labor. Day of delivery - Routine - Anticipate discharge tomorrow as baby will need to likely stay for 36 hours given inadequate GBS prophylaxis. Current Medications Current Medications Current Medications: Current Medications Generic Name Dose Route Start Last Admin Trade Name Freq PRN Reason Stop Dose Admin Acetaminophen 1,000 mg 11/20/24 21:17 Acetaminophen 500 Mg Tablet PO Q8H PRN Mild Pain or Fever>38C(100.4F) Acetaminophen 1,000 mg 11/21/24 00:55 Acetaminophen 500 Mg Tablet PO Q8HR PRN Mild Pain or Fever>38C(100.4F) Albuterol 2.5 mg 11/21/24 00:57 Albuterol Neb 2.5 Mg/3 Ml INH Q4H PRN Shortness of Air/Wheezing Buspirone HCl 5 mg 11/21/24 09:00 11/21/24 09:39 Buspirone 5 Mg Tablet PO 5 mg DAILY FÉLIX Administration Diphenhydramine HCl 25 mg 11/21/24 00:55 Diphenhydramine 25 Mg Capsule PO Q6HR PRN Allergy Symptoms Docusate Sodium 100 mg 11/21/24 09:00 11/21/24 09:39 Docusate Sodium 100 Mg Capsule PO 100 mg BID FÉLIX Administration Ephedrine Sulfate 5 mg 11/20/24 22:13 Ephedrine 50 Mg/Ml Vial IVP Q5M PRN For SBP<100;give until SBP>100 Fentanyl 50 mcg 11/20/24 21:17 Fentanyl 100 Mcg/2 Ml Vial IVP Q1H PRN Severe Pain (score 7-10) Hydralazine HCl 5 - 10 mg 11/20/24 21:17 Hydralazine Inj 20 Mg/Ml Vial IVP Q20M PRN SBP> or= 160 OR DBP> or= 110 Protocol Hydrocortisone 1 applic 11/21/24 00:55 Hydrocortisone 1% Cream 28 Gm Tube TOP QID PRN Hemorrhoids Lactated Ringer's 500 mls @ 999 mls/hr 11/20/24 21:17 11/21/24 00:40 Lr IV Infused PRN PRN Infusion intrauterine resuscitation Oxytocin/Sodium Chloride 500 mls @ 999 mls/hr 11/20/24 21:17 11/21/24 00:40 Pitocin/Sodium Chloride IV 999 milliunit/min PRN PRN 999 mls/hr POST- HEMORR PREVENTION Administration Protocol 999 MILLIUNIT/MIN Tranexamic Acid 1,000 mg in 100 mls @ 600 mls/hr 11/20/24 21:17 Tranexamic 1,000 Mg/100ml-Nacl IV Q30M PRN EBL >1200mL and within 3hr Ropivacaine 200 mg in 100 mls @ 0 mls/hr 11/20/24 22:13 Naropin 0.2% EP PRN PRN PAIN Protocol Per Protocol Oxytocin/Sodium Chloride 500 mls @ 999 mls/hr 11/21/24 00:55 Pitocin/Sodium Chloride IV PRN PRN POST- HEMORR PREVENTION Protocol 999 MILLIUNIT/MIN Ibuprofen 600 mg 11/21/24 00:55 11/21/24 15:58 Ibuprofen 600 Mg Tablet PO 600 mg Q6HR PRN Administration Moderate Pain (Level 4-6) Lidocaine HCl 20 ml 11/20/24 21:17 Lidocaine 1% 20 Ml Mdv ID 11/23/24 21:17 .ONCE PRN PERINEAL REPAIR Methylergonovine Maleate 0.2 mg 11/20/24 21:17 Methylergonovine 0.2 Mg/Ml Vial IM .ONCE PRN Hemorrhage Misoprostol 800 mcg 11/20/24 21:17 Misoprostol 200 Mcg Tablet GA .ONCE PRN Hemorrhage Nalbuphine HCl 5 mg 11/20/24 22:13 Nalbuphine 10 Mg/Ml Amp IVP 11/21/24 22:14 Q4H PRN ITCHING Naloxone HCl 0.1 mg 11/20/24 22:13 Naloxone 0.4 Mg/Ml Vial IVP Q2M PRN RR<8 Naloxone HCl 0.1 mg 11/20/24 22:13 Naloxone 0.4 Mg/Ml Vial IVP 11/21/24 22:14 Q2M PRN RR < 8 Naloxone HCl 0.4 mg 11/21/24 00:55 Naloxone 0.4 Mg/Ml Vial IVP .ONCE PRN Opioid Overdose Nifedipine 10 - 20 mg 11/20/24 21:17 Nifedipine 10 Mg Capsule PO Q20M PRN SBP> or= 160 OR DBP> or= 110 Protocol Ondansetron HCl 4 mg 11/20/24 22:13 Ondansetron 4 Mg/2 Ml Vial IVP Q6HR PRN Nausea / Vomiting Oxytocin 10 unit 11/20/24 21:17 Oxytocin 10 Unit/Ml Vial IM .ONCE PRN Step One if no IV access. Multivit/Folic Acid/Iron 1 tab 11/21/24 09:00 11/21/24 09:39 Vitamin Tablet PO 1 tab DAILY FÉLIX Administration Simethicone 80 mg 11/21/24 00:55 Simethicone Chew 80 Mg Tablet PO TID PRN Gas Sodium Chloride 10 ml 11/20/24 21:17 Sodium Chloride Flush 0.9% 10 Ml Syringe IVP PRN PRN NEEDED PER PROVIDER ORDERS Sodium Chloride 10 ml 11/20/24 22:00 Sodium Chloride Flush 0.9% 10 Ml Syringe IVP Q8H FÉLIX Terbutaline Sulfate 0.25 mg 11/20/24 21:17 Terbutaline 1 Mg/Ml Vial SUBQ .ONCE PRN Tachystole Witch Sydni/Glycerin 1 pad 11/21/24 00:55 Witch Sydni/Glycerin 1 Pad TOP PRN PRN ITCHING Objective Vital Signs/Intake & Output Vital Signs: Vital Signs x48h Temp Pulse Resp BP Pulse Ox 11/21/24 16:11 36.6 C 65 16 115/57 L 98 Intake & Output: Intake & Output 11/18/24 11/19/24 11/20/24 11/21/24 23:59 23:59 23:59 23:59 Intake Total 600 / 600 800 / 800 Output Total 400 / 400 Balance 600 / 600 400 / 400 Weight (kg) 180 lb Lab Results 11/20/24 21:25 Other Labs: Lab Results x24hrs 11/20/24 Range/Units 21:25 WBC 14.6 H (4.8-10.8) x10^3/uL RBC 3.95 L (4.20-5.40) 10^6/uL Hgb 12.7 (12.0-16.0) g/dL Hct 36.1 L (37.0-47.0) % MCV 91.4 (81.0-99.0) fL MCH 32.2 H (27.0-31.0) pg MCHC 35.2 (32.0-36.0) g/dL RDW 13.2 (12.0-15.0) % Plt Count 221 (130-450) 10^3/uL MPV 11.2 H (7.9-10.8) fL Neut # (Auto) 12.2 H (1.5-6.6) 10^3/uL Lymph # (Auto) 1.4 L (1.5-3.5) 10^3/uL [place] # (Auto) 0.9 (0.0-1.0) 10^3/uL Eos # (Auto) 0.0 (0.0-0.7) 10^3/uL Baso # (Auto) 0.0 (0.0-0.1) 10^3/uL Absolute Nucleated RBC 0.00 x10^3/uL Nucleated RBC % 0.0 /100WBC Blood Type A POSITIVE Antibody Screen NEGATIVE
[2024-11-22] MEDS: ACETAMINOPHEN 500 MG TABLET PO PRN (01:16)
--- NOTE | 2024-11-22 07:21 | Discharge Summary ---
Discharge Summary Admit Date: 11/20/24 Discharge Date: 11/22/24 HPI History of Present Illness: Diagnosis on admission: 24 yo @ 39+4 weeks gestation by 10+2 wk U/S Active labor FHR 135 Cat I POSITIVE Diagnosis on Discharge 24 yo s/p 11/21/2024 @ 0032 following spontaneous onset of labor at 39+4 weeks Intact perineum Routine post care Physical exam: Normocephalic, atraumatic Lungs no increased work of breathing Normal uterine involution, FF below umbilicus almost no vaginal bleeding. States this was the same for her last delivery Minimal perineal discomfort. Bilateral LE's no edema Mood is good. Brief History: [facility] who presented on 11/20/2024 with complaints of contractions. She was found to be silvia regularly and 8cm. Labor progressed naturally and she received an effective epidural for pain management. She spontaneously delivered a viable female infant apgars 7& 9 at 1 and 5 minutes respectively. EBL 50 ml. intact perineum. weight: 4110g "Valarie." She has been doing well in her course. She is ambulating and tolerating a regular diet. She is urinating without difficulty and her lochia is normal. Her pain is well controlled without narcotic management. She will be discharged to home today on day 1 and encouraged IBU, tylenol and stool softeners PRN. She intends to follow up with [facility] in 1 week for telehealth. Appointment scheduled 12/02/2024 @ 1230. She has been given precautions to call if she has any new or worsening sx such as fevers, chills, abdominal pain, increasing bleeding, or foul smelling vaginal lochia. preeclamptic precautions reviewed as well. VZV: Immune Rubella: Immune RH: A+ This 24 -year-old, G 2 P1001 @ 39+4 weeks gestation by 10+2 week ultrasound presented @ 1999 on 11/20/24 in active labor and in condition. She could not initially tolerate an exam and was moaning and writing in pain requesting an epidural. Once an epidural was placed, SVE 8/80/-1, bulging bag and Vertex presentation by exam. GBS positive, treated x1 dose approximately 3 hours prior to delivery. FHR pattern demonstrated 135 baseline in a category I prior to second stage. Normal labor course. SROM occurred 11/20/2024 @ 2322. She then progressed to complete/complete 11/21/2024 @ 0001 and second stage began @ 0008. : Normal spontaneous vaginal delivery of a viable female on 11/21/24 @ 0032. No nuchal cord. Once shoulders delivered, Xochilt was able to lift her to her abdomen where the was stimulated, dried and placed skin to skin. Apgars 7 & 9 @ 1&5 minutes. The umbilical cord was allowed to stop pulsating at which time it was doubly clamped by delivering provider and cut by FOB. 3VC. Cord blood was obtained. Fundal massage and gently cord traction applied for active management of the third stage, placenta delivered spontaneously and intact and appeared normal @ X. EBL 50cc. Placenta appeared intact and the family will be bringing it home for incapsulation. Pitocin administered via IV for homeostasis and allowed to run freely. Uterine massage was performed until uterus was deemed firm. weight pending at this time. Blood type: A+ Antibody Screen: Negative CBC: PLT 293 HCT 40.4 HGB 13.9 RUB: Immune VZV: Immune ALLERGIES Allergies Allergy/AdvReac Type Severity Reaction Status Date / Time CAT Allergy Unknown Unknown Uncoded 11/15/24 13:54 POLLENS Allergy Unknown Unknown Uncoded 11/15/24 13:54 SMOKE Allergy Unknown Unknown Uncoded 11/15/24 13:54 MEDICATIONS Ambulatory Orders Medication Instructions Recorded Confirmed buspirone 5 mg tablet 5 mg PO DAILY 10/04/23 11/21/24 prenat.vits,paula,bgi-hvqk-uyulz 1 tab PO DAILY 05/28/24 11/21/24 albuterol sulfate 90 mcg/actuation 2 inh inhalation Q4-6H PRN 10/25/24 11/21/24 aerosol inhaler shortness of breath or wheezing #6.7 grams PHYSICAL EXAM AT DISCHARGE Vital Signs: Vital Signs x48h Temp Pulse Resp BP Pulse Ox 11/22/24 02:00 36.8 C 71 16 111/73 94 LABS 11/20/24 21:25 Discharge Plan Discharge Patient Disposition: FELIX, Self Care Prescriptions: Continued buspirone 5 MG tablet 5 mg PO DAILY prenat.vits,paula,nbz-arml-vepjs Tablet 1 tab PO DAILY albuterol sulfate 90 mcg/actuation HFA aerosol inhaler 2 inh inhalation Q4-6H PRN (Reason: shortness of breath or wheezing) Qty: 6.7 1RF Print Language: Paraguayan Follow-up Care: Lolis James ARNP [Primary Care Provider] -
[2024-11-22] MEDS ORDERED: IBUPROFEN 600 MG TABLET PO SCH (12:00)
[2024-11-22 12:39] VITALS: BP 109/61; TEMP 97.7; O2SAT 99
--- NOTE | 2024-11-22 12:43 | Labor Flowsheet ---
Labor Flowsheet Datetime Report Generated by CPN: 11/22/2024 12:42 Datetime: 11/22/2024 09:18 VITAL SIGNS NBP Sys/Nadira/Mean (mmHg): 109 : 61 : 73 Pulse: 77 Datetime: 11/21/2024 16:04 SpO2 (%): 96 Datetime: 11/21/2024 06:01 Stage of : Datetime: 11/21/2024 02:30 LaborFlag: Labor Datetime: 11/21/2024 00:46 Vital Sign Comments: BP taken when arm bent holding , will repeat BP Datetime: 11/21/2024 00:37 Stage 2 Comments: cord clamped and cut Datetime: 11/21/2024 00:30 UTERINE ACTIVITY Monitor Mode: External Frequency (min): 1.5-3 Duration (sec): 70-140 Pattern: Normal: <= 5 Contractions in 10 Minutes ASSESSMENT A Monitor Mode: External US FHR Baseline Rate : 140 Variability: Moderate 6-25 bpm Decelerations: Early; Variable Category: Category II Comments: RN and CNM continuously at bedside and are assessing FHR/toco q5mins while pushing Oxygen Method: Room Air Datetime: 11/21/2024 00:09 I/O Interventions: Lechuga Discontinued Datetime: 11/21/2024 00:08 STAGE 2 Pushing: Coached on Pushing; Urge to Push Pushing Position: Pushing with Contractions; Pushing Lithotomy Datetime: 11/21/2024 00:06 Communication Comments: CNM at bedside Datetime: 11/21/2024 00:01 VAGINAL EXAM Dilatation (cm): 10.0 Exam by: Tomasa Daily RN Datetime: 11/20/2024 23:52 Anesthesia Comments: INFORMATION TECHNOLOGY COORDINATOR Rebeca at bedside to bolus epidural Datetime: 11/20/2024 23:50 Pain Presence: Intermittent Pain Type: Sharp; Pressure Pain Location: Back Datetime: 11/20/2024 23:49 PATIENT CARE IV/Blood Work: IV Bolus Given ml @ 500 Patient Care Comments: for low BP, pt laying left lateral with BP cuff up on right arm, INFORMATION TECHNOLOGY COORDINATOR aware Datetime: 11/20/2024 23:30 Accelerations: 15X15 Datetime: 11/20/2024 23:29 Membrane Comments: per CNM, bulging membranes still palpable with vag exam Datetime: 11/20/2024 23:22 Membrane Status: Ruptured Membranes Rupture Method: Spontaneous Amniotic Fluid Color: Clear Nitrazine: Positive Patient Position/Activity: Right Lateral Datetime: 11/20/2024 22:57 Membranes Ruptured Date/Time: 11/20/2024 23:22 Amniotic Fluid Amount: Small Amniotic Fluid Odor: Normal Datetime: 11/20/2024 22:38 PAIN Pain Scale: 0 Pain Assessment Comments: pt reports no pain with ctx, only pressure Comfort Measures: Breathing/Relaxation Datetime: 11/20/2024 22:30 Quality: Strong Resting Tone (Palpate): Relaxed COMMUNICATION Communication: Provider at Bedside Provider Notified (Name): K. Jose Enriquet, CNM Datetime: 11/20/2024 22:13 Monitor Interventions for UA: Muir Adjusted Datetime: 11/20/2024 22:03 Epidural Procedure: Completed Datetime: 11/20/2024 21:48 MEDICATIONS Antibiotics: Ampicillin IV 2 Gm Datetime: 11/20/2024 21:47 PROCEDURE TIME OUT Procedure Verify: Correct Patient Identity; Correct Side and Site are Marked; Accurate Procedure Co nsent Form; Agreement on Procedure to be Done; Correct Patient Position; Relevant Images and Results are Properly Labeled and Displayed; Addressed Need to Administer Antibiotics or Fluids for Irrigation ; Safety Precautions Based on Patient History or Medication Use ANESTHESIA Anesthesia Plans: Epidural Epidural Positioning: Sitting Datetime: 11/20/2024 21:24 Notification Reason: Patient Request Datetime: 11/20/2024 19:58 Vaginal Exam Comments: SVE,unable to reach cervix, pt did not tolerate check well
== END 2024-11-22 12:41 | disposition home or self-care (01) | DRG 807 ==
LOC: WFO 19:42 → FBP 19:44
PROVIDERS: ADMIT Nurse Practitioner; ATTEND Nurse Practitioner